=== PATIENT | female | born 1970 | race Caucasian/White ===

== ENCOUNTER 2019-04-15 16:48 | Observation (INO) | payer OTHER ==
[~2019-04-15] VITALS: Ht 162 cm; Wt 92.1 kg
[2019-04-15] MEDS ORDERED: NITROGLYCERIN 0.4 MG SL TABS BTL 25'S SL PRN ×2 (17:00→19:15)
[2019-04-15] MEDS ORDERED: ASPIRIN 81 MG CHEW (CHILDREN'S ASA) PO ONE (17:00)
--- NOTE | 2019-04-15 17:07 | ED Chest Pain ---
General Chief Complaint: Chest Pain Stated Complaint: CHEST PAIN Source: patient, RN/MD (Dr. goodman, urgent care) Exam Limitations: no limitations History of Present Illness Date Seen by Provider: Apr 15, 2019 Time Seen by Provider: 16:48 Initial Comments Patient reports the ER by private conveyance from urgent care with chief compla int she woke up this morning around 6 and was having some burning pain down the center of her chest substernal nonradiating. She's also having some numbness and weakness in her left upper extremity. She said she's had this intermittently for the past 3-4 weeks. She does not follow with a primary care doctor but does see Dr. goodman at urgent care for most of her needs. She is on blood pressure medicine and was told her cholesterol was high so she started exercising recently. She says whenever she exercised today it made her pain in her chest worse and she became short of breath. Recently she was being treated for bronchitis/pneumonia outpatient with antibiotics. She is off that now. She has not been on steroids. No history of diabetes, smoking or recreational drugs. She occasionally has alcohol. No significant familial history of coronary disease. She's not had any fever but she has had some sweats which she associates with her perimenopausal. Dr. goodman called report ahead stating that the initial EKG was negative. She takes omeprazole daily for acid reflux. She had mycoplasma pneumonia in January for the urgent care note. Pain never completely goes away but it's about a 1 out of 10 presently. She says it got worse she walked in to the ER. She uses albuterol and Symbicort for her asthma. Allergies and Home Medications Allergies Coded Allergies: No Known Drug Allergies (Unverified , 04/15/19) Patient Home Medication List Home Medication List Reviewed: Yes Review of Systems Review of Systems Constitutional: No chills, No diaphoresis EENTM: No Blurred Vision, No Double Vision Respiratory: Denies Cough, Denies Orthopnea Cardiovascular: See HPI, Chest Pain; Denies Edema, Denies Irregular Heart Rate, Denies Lightheadedness Gastrointestinal: Denies Abdomen Distended, Denies Abdominal Pain, Denies Const ipated, Denies Diarrhea Musculoskeletal: No back pain, No joint pain All Other Systems Reviewed Negative Unless Noted: Yes Past Hqeuhla-Okujao-Qdvltj Hx Patient Social History Alcohol Use: Denies Use Recreational Drug Use: No Smoking Status: Never a Smoker Recent Foreign Travel: No Contact w/Someone Who Travel: No Physical Exam Vital Signs Vital Signs - First Documented 04/15/19 16:55 Temp 36.1 Pulse 103 Resp 20 B/P (MAP) 201/103 (135) Pulse Ox 99 Capillary Refill : Height, Weight, BMI Height: '" Weight: lbs. oz. kg; BMI Method: General Appearance: WD/WN, Mild Distress HEENT: TMs Normal, Pharynx Normal, Moist Mucous Membranes Neck: Full Range of Motion, Normal Inspection Respiratory: Chest Non Tender, Lungs Clear, Normal Breath Sounds, No Accessory Muscle Use, No Respiratory Distress Cardiovascular: Regular Rate, Rhythm, No Edema, No Gallop, No Murmur, Normal Pe ripheral Pulses Gastrointestinal: Normal Bowel Sounds, Non Tender Extremity: Normal Capillary Refill, Normal Inspection, No Pedal Edema Neurologic/Psychiatric: Alert, Oriented x3 Skin: Normal Color, Warm/Dry Progress/Results/Core Measures Results/Orders Lab Results Laboratory Tests Test 04/15/19 16:50 04/15/19 18:27 Range/Units White Blood Count 9.1 4.3-11.0 10^3/uL Red Blood Count 4.83 4.35-5.85 10^6/uL Hemoglobin 14.2 11.5-16.0 G/DL Hematocrit 41 35-52 % Mean Corpuscular Volume 85 80-99 FL Mean Corpuscular Hemoglobin 29 25-34 PG Mean Corpuscular Hemoglobin Concent 35 32-36 G/DL Red Cell Distribution Width 13.7 10.0-14.5 % Platelet Count 287 130-400 10^3/uL Mean Platelet Volume 11.2 H 7.4-10.4 FL Neutrophils (%) (Auto) 65 42-75 % Lymphocytes (%) (Auto) 26 12-44 % Monocytes (%) (Auto) 8 0-12 % Eosinophils (%) (Auto) 1 0-10 % Basophils (%) (Auto) 0 0-10 % Neutrophils # (Auto) 5.9 1.8-7.8 X 10^3 Lymphocytes # (Auto) 2.3 1.0-4.0 X 10^3 Monocytes # (Auto) 0.8 0.0-1.0 X 10^3 Eosinophils # (Auto) 0.1 0.0-0.3 10^3/uL Basophils # (Auto) 0.0 0.0-0.1 10^3/uL Prothrombin Time 13.1 12.2-14.7 SEC INR Comment 1.0 0.8-1.4 Activated Partial Thromboplast Time 32 24-35 SEC D-Dimer < 0.27 0.00-0.49 UG/ML Sodium Level 138 135-145 MMOL/L Potassium Level 3.3 L 3.6-5.0 MMOL/L Chloride Level 102 98-107 MMOL/L Carbon Dioxide Level 24 21-32 MMOL/L Anion Gap 12 5-14 MMOL/L Blood Urea Nitrogen 9 7-18 MG/DL Creatinine 0.78 0.60-1.30 MG/DL Estimat Glomerular Filtration Rate > 60 BUN/Creatinine Ratio 12 Glucose Level 94 70-105 MG/DL Calcium Level 9.7 8.5-10.1 MG/DL Corrected Calcium 8.5-10.1 MG/DL Magnesium Level 2.0 1.6-2.4 MG/DL Total Bilirubin 0.4 0.1-1.0 MG/DL Aspartate Amino Transf (AST/SGOT) 15 5-34 U/L Alanine Aminotransferase (ALT/SGPT) 18 0-55 U/L Alkaline Phosphatase 74 40-136 U/L Myoglobin 35.3 10.0-92.0 NG/ML Troponin I < 0.028 <0.028 NG/ML Total Protein 8.0 6.4-8.2 GM/DL Albumin 4.6 H 3.2-4.5 GM/DL Lipase 27 8-78 U/L Urine Color YELLOW Urine Clarity CLEAR Urine pH 6.5 5-9 Urine Specific [place] <=1.005 1.016-1.022 Urine Protein NEGATIVE NEGATIVE Urine Glucose (UA) NEGATIVE NEGATIVE Urine Ketones NEGATIVE NEGATIVE Urine Nitrite NEGATIVE NEGATIVE Urine Bilirubin NEGATIVE NEGATIVE Urine Urobilinogen 0.2 < = 1.0 MG/DL Urine Leukocyte Esterase NEGATIVE NEGATIVE Urine RBC (Auto) NEGATIVE NEGATIVE Urine RBC NONE /HPF Urine WBC NONE /HPF Urine Squamous Epithelial Cells 2-5 /HPF Urine Crystals NONE /LPF Urine Bacteria TRACE /HPF Urine Casts NONE /LPF Urine Mucus NEGATIVE /LPF Urine Culture Indicated NO Urine Test NEGATIVE NEGATIVE My Orders Orders - TL ORTIZ Ekg Tracing (04/15/19 16:50) Continuous Ekg Monitoring (04/15/19 16:50) Cbc With Automated Diff (04/15/19 17:00) Magnesium (04/15/19 17:00) Chest 1 View, Ap/Pa Only (04/15/19 17:00) Comprehensive Metabolic Panel (04/15/19 17:00) Myoglobin Serum (04/15/19 17:00) Protime With Inr (04/15/19 17:00) Partial Thromboplastin Time (04/15/19 17:00) O2 (04/15/19 17:00) Lipid Panel (04/16/19 06:00) Ed Iv/Invasive Line Start (04/15/19 17:00) Lipase (04/15/19 17:00) Fibrin Degradation Products (04/15/19 17:00) Troponin I (04/15/19 17:00) Nitroglycerin 0.4 Mg Btl 25's (Nitrostat (04/15/19 17:00) Aspirin Chewable Tablet (Baby Aspirin Ch (04/15/19 17:00) Ua Culture If Indicated (04/15/19 18:26) Hcg,Qualitative Urine (04/15/19 18:26) Drug Screen Stat (Urine) (04/15/19 18:26) Medications Given in ED Current Medications Medications Dose Ordered Sig/Clare Route Start Time Stop Time Status Last Admin Dose Admin Aspirin 324 mg ONCE ONCE PO 04/15/19 17:00 04/15/19 17:03 DC 04/15/19 17:13 324 MG Nitroglycerin 0.4 mg UD PRN SL 04/15/19 17:00 04/15/19 17:14 0.4 MG Vital Signs/I&O 04/15/19 04/15/19 16:55 18:33 Temp 36.1 Pulse 103 73 Resp 20 18 B/P (MAP) 201/103 (135) 162/76 Pulse Ox 99 97 Progress Progress Note #1: Time: 17:08 Progress Note Patient has lots of confounding chest pain mimics such as GERD, recent pneumonia/bronchitis, asthma, etc. Plan to start off with aspirin and nitroglycerin. If this does not help then we'll try an antacid and GI cocktail. Initial EKG is unremarkable. She has risk factors of hypercholesterolemia, obesity and hypertension for coronary disease. With a negative troponin and she would have 4 points, heart scale based on her risk factors and age. Because of her tachycardia we'll get a d-dimer. Her recent illnesses had or laid up his back trying to exercise and she has exertional shortness of breath so a pulmonary embolism is possible. Well score 3 points: Moderate risk group: 16.2% chance of PE in an ED population. Her blood pressure is significantly elevated at 173/90. Progress Note #2: Time: 17:43 Progress Note Nursing reports that the patient's chest discomfort went away entirely with 1 dose of nitroglycerin and her blood pressure has improved significantly down to 149/85. She has no longer tachycardic. D-dimer is below the detectable rate; ruling out the likelihood of any pulmonary emboli. Initial ECG Impression Date: Apr 15, 2019 Initial ECG Impression Time: 16:08 Initial ECG Rate: 74 Initial ECG Rhythm: Normal Sinus Initial ECG Intervals: Normal Initial ECG Impression: Normal Initial ECG Comparisson: No Previous ECG Available Comment No ST elevation or depression. Normal sinus rhythm. EKG : EKG Time: 16:54 Rate: 98 Rhythm: Normal Sinus Intervals: Normal ECG Comparisson: Unchanged ECG Impression: Normal Comment Borderline left axis deviation, normal sinus rhythm. No clinically relevant ST elevation or depression. About one half block ST depression in the anterior lateral leads. Diagnostic Imaging Diagonstic Imaging: Xray Plain Films/CT/US/NM/MRI: chest (1v) Comments NAME: KEMAL MCBRIDE [facility] REC#: [id number] PT STATUS: REG ER : 1970 PHYSICIAN: TL ORTIZ MD ADMIT DATE: 04/15/19/ER Signed Date of Exam:04/15/19 CHEST 1 VIEW, AP/PA ONLY INDICATION: Chest pain Frontal chest obtained at 05:25 hours p.m. There is no prior study for comparison. Heart and mediastinal silhouette are normal in appearance. The lungs are clear. There is no pneumothorax or pleural fluid. IMPRESSION: Negative chest. Dictated by: Dictated on workstation # [id number] Dict: 04/15/19 1728 Trans: 04/15/19 173 [facility] [id number] Interpreted by: TARI MARQUEZ MD Electronically signed by: TARI MARQUEZ MD 04/15/19 1734 Reviewed: Reviewed by Me Departure Communication (Admissions) Time/Spoke to Admitting Phy: 18:40 Discussed the case with Dr. Connell and he agrees to observe the patient with cardiac consultation and trend troponins. Time/Spoke to Consulting Phy: 18:15 Discussed case EKG findings with Dr. Abraham and he agrees to consult on the patient. Impression Primary Impression: Chest pain on exertion Disposition: ADMITTED INPATIENT Condition: Stable Admissions Decision to Admit Reason: Admit from ER (General) Decision to Admit/Date: Apr 15, 2019 Time/Decision to Admit Time: 17:47 Departure-Patient Inst. Referrals: NO,LOCAL PHYSICIAN (PCP) Primary Care Physician TL ORTIZ Apr 15, 2019 17:07
[2019-04-15 17:21] LABS: BASOPHILS % (AUTO) 0 % (0-10); EOSINOPHILS # (AUTO) 0.1 10^3/uL (0.0-0.3); EOSINOPHILS % (AUTO) 1 % (0-10); HEMATOCRIT 41 % (35-52); HEMOGLOBIN 14.2 G/DL (11.5-16.0); LYMPHOCYTES # (AUTO) 2.3 X 10^3 (1.0-4.0); LYMPHOCYTES % (AUTO) 26 % (12-44); MEAN CORPUSCULAR HEMOGLOBIN 29 PG (25-34); MEAN CORPUSCULAR HGB CONC 35 G/DL (32-36); MEAN CORPUSCULAR VOLUME 85 FL (80-99); MEAN PLATELET VOLUME 11.2 FL (7.4-10.4); MONOCYTES # (AUTO) 0.8 X 10^3 (0.0-1.0); MONOCYTES % (AUTO) 8 % (0-12); NEUTROPHILS # (AUTO) 5.9 X 10^3 (1.8-7.8); NEUTROPHILS % (AUTO) 65 % (42-75); PLATELET COUNT 287 10^3/uL (130-400); RED CELL DISTRIBUTION WIDTH 13.7 % (10.0-14.5); WHITE BLOOD COUNT 9.1 10^3/uL (4.3-11.0)
[2019-04-15 17:33] LABS: PROTHROMBIN TIME PATIENT 13.1 SEC (12.2-14.7)
--- NOTE | 2019-04-15 17:36 | Diagnostic Imaging Report ---
INDICATION: Chest pain Frontal chest obtained at 05:25 hours p.m. There is no prior study for comparison. Heart and mediastinal silhouette are normal in appearance. The lungs are clear. There is no pneumothorax or pleural fluid. IMPRESSION: Negative chest. Dictated by: Dictated on workstation # [id number]
[2019-04-15 17:43] LABS: ALANINE AMINOTRANSFERASE 18 U/L (0-55); ALBUMIN 4.6 GM/DL (3.2-4.5); ALKALINE PHOSPHATASE 74 U/L (40-136); BILIRUBIN,TOTAL 0.4 MG/DL (0.1-1.0); BUN/CREATININE RATIO 12; CALCIUM 9.7 MG/DL (8.5-10.1); CARBON DIOXIDE 24 MMOL/L (21-32); CHLORIDE 102 MMOL/L (98-107); CREATININE SERUM 0.78 MG/DL (0.60-1.30); GFR ESTIMATED > 60; GLUCOSE 94 MG/DL (70-105); LIPASE 27 U/L (8-78); POTASSIUM 3.3 MMOL/L (3.6-5.0); SODIUM 138 MMOL/L (135-145)
--- NOTE | 2019-04-15 18:32 | NUR ---
REPORT FROM PABLO EVANS IN ED.
[2019-04-15 18:35] LABS: BILIRUBIN,URINE NEGATIVE (NEGATIVE); CLARITY,URINE CLEAR; COLOR,URINE YELLOW; GLUCOSE, URINE (UA) NEGATIVE (NEGATIVE); KETONES,URINE NEGATIVE (NEGATIVE); LEUKOCYTE ESTERASE ,URINE NEGATIVE (NEGATIVE); NITRITE,URINE NEGATIVE (NEGATIVE); PH,URINE 6.5 (5-9); PROTEIN,URINE NEGATIVE (NEGATIVE)
[2019-04-15 18:38] LABS: HCG,QUALITATIVE URINE NEGATIVE (NEGATIVE)
[2019-04-15 18:41] LABS: BACTERIA,URINE TRACE /HPF
[2019-04-15 18:46] LABS: AMPHETAMINE SCREEN, URINE NEGATIVE (NEGATIVE); BENZODIAZEPINES SCREEN URINE NEGATIVE (NEGATIVE); CANNABINOID SCREEN, URINE NEGATIVE (NEGATIVE); COCAINE SCREEN URINE NEGATIVE (NEGATIVE); METHAMPHETAMINE SCREEN URINE S NEGATIVE (NEGATIVE)
[2019-04-15 18:47] LABS: BARBITURATE SCREEN URINE NEGATIVE (NEGATIVE); METHADONE STAT NEGATIVE (NEGATIVE); OPIATE SCREEN URINE NEGATIVE (NEGATIVE); OXYCODONE STAT NEGATIVE (NEGATIVE); PROPOXYPHENE STAT NEGATIVE (NEGATIVE); TRICYCLIC ANTIDEPRESSANTS SCRE NEGATIVE (NEGATIVE)
[2019-04-15] MEDS ORDERED: ONDANSETRON 4 MG/2 ML (SDV) Z0FRAN IV PRN ×2 (19:15→19:30)
[2019-04-15] MEDS ORDERED: morphine INJ 4 MG/ML 1 ML (VIAL/SYRINGE) IV PRN (19:15)
[2019-04-15 19:17] VITALS: BP 152/88
[2019-04-15 19:19] VITALS: BP 152/88
[2019-04-15] MEDS ORDERED: ANTACID SUSP 30 ML UDC (MYLANTA) PO PRN (19:30)
[2019-04-15] MEDS ORDERED: CATHETER FLUSH 10 ML SYR IV PRN (19:30)
[2019-04-15] MEDS ORDERED: ACETAMINOPHEN 500 MG TAB (TYLENOL) PO PRN (19:30)
[2019-04-15] MEDS ORDERED: PANTOPRAZOLE 40 MG (PROTONIX) TAB PO SCH (21:00)
[2019-04-15] MEDS: CATHETER FLUSH 10 ML SYR IV SCH (23:44)
[2019-04-16] VITALS: BP 134/82
[2019-04-16 05:19] VITALS: BP 125/82
[2019-04-16 06:26] LABS: BASOPHILS % (AUTO) 0 % (0-10); EOSINOPHILS # (AUTO) 0.1 10^3/uL (0.0-0.3); EOSINOPHILS % (AUTO) 1 % (0-10); HEMATOCRIT 38 % (35-52); HEMOGLOBIN 12.8 G/DL (11.5-16.0); LYMPHOCYTES # (AUTO) 1.8 X 10^3 (1.0-4.0); LYMPHOCYTES % (AUTO) 29 % (12-44); MEAN CORPUSCULAR HEMOGLOBIN 29 PG (25-34); MEAN CORPUSCULAR HGB CONC 33 G/DL (32-36); MEAN CORPUSCULAR VOLUME 87 FL (80-99); MEAN PLATELET VOLUME 10.9 FL (7.4-10.4); MONOCYTES # (AUTO) 0.6 X 10^3 (0.0-1.0); MONOCYTES % (AUTO) 10 % (0-12); NEUTROPHILS # (AUTO) 3.7 X 10^3 (1.8-7.8); NEUTROPHILS % (AUTO) 60 % (42-75); PLATELET COUNT 222 10^3/uL (130-400); RED CELL DISTRIBUTION WIDTH 13.6 % (10.0-14.5); WHITE BLOOD COUNT 6.1 10^3/uL (4.3-11.0)
[2019-04-16] MEDS: CATHETER FLUSH 10 ML SYR IV SCH ×3 (06:36→22:41)
[2019-04-16 06:50] LABS: ALANINE AMINOTRANSFERASE 14 U/L (0-55); ALBUMIN 3.8 GM/DL (3.2-4.5); ALKALINE PHOSPHATASE 71 U/L (40-136); BILIRUBIN,TOTAL 0.4 MG/DL (0.1-1.0); BUN/CREATININE RATIO 11; CALCIUM 9.2 MG/DL (8.5-10.1); CARBON DIOXIDE 25 MMOL/L (21-32); CHLORIDE 105 MMOL/L (98-107); CHOLESTEROL 246 MG/DL (< 200); CREATININE SERUM 0.81 MG/DL (0.60-1.30); GFR ESTIMATED > 60; GLUCOSE 94 MG/DL (70-105); HDL CHOLESTEROL 68 MG/DL (40-60); POTASSIUM 3.8 MMOL/L (3.6-5.0); SODIUM 140 MMOL/L (135-145); TOTAL PROTEIN 6.6 GM/DL (6.4-8.2); TRIGLYCERIDES 107 MG/DL (<150); VLDL CHOLESTEROL 21 MG/DL (5-40)
[2019-04-16 08:00] VITALS: BP 160/85
--- NOTE | 2019-04-16 08:05 | NUR ---
notified cardiac MD regarding patients change in troponin level as well as elevated BP this AM, no orders at this time
[2019-04-16] MEDS: ASPIRIN E.C. 81 MG (ECOTRIN) TAB PO SCH (08:44)
--- NOTE | 2019-04-16 09:34 | Consultation-Cardiology ---
HPI-Cardiology Cardiology Consultation Date of Consultation 04/16/19 Date of Admission Time Seen by Provider: 09:31 Indication: chest pain HPI 48-year-old lady with no significant past medical history, has been having occasional episodes of chest pain, reported an episode of chest pain about 3 months ago as dull in nature on the left side of her chest radiating to the left shoulder and left arm during a skiing trip. Improved after returning home, continue to feel better, diagnosed with pneumonia earlier this year then bronchitis, started to have recurrent episodes of chest pain described it as dull in nature in the retrosternal area usually with exertion relieved by rest, had worsening episode of chest pain yesterday, improved after sublingual nitroglycerin Home Medications & Allergies Allergies: Coded Allergies: No Known Drug Allergies (Unverified , 04/15/19) Home Medication List Reviewed: Yes KHC-Mztxro-Tpcmeu Hx Patient Social History Marital Status: Employed/Student: employed Alcohol Use: Denies Use Recreational Drug Use: No Smoking Status: Never a Smoker Recent Foreign Travel: No Recent Infectious Disease Expo: No Recent Hopitalizations: No Immunizations Up To Date Date of Pneumonia Vaccine: Apr 15, 2018 Date of Influenza Vaccine: Dec 13, 2018 Past Medical History Discussed below Family Medical History Family Medical Hx Noncontributory Review of Systems-General Review of Systems Constitutional: see HPI; No chills, No diaphoresis EENTM: see HPI, no symptoms reported Respiratory: see HPI; No cough; dyspnea on exertion; No hemoptysis, No ortho pnea, No phlegm, No short of breath, No stridor, No wheezing, No other Cardiovascular: see HPI, chest pain; No edema, No Hx of Intervention, No palpitations, No syncope, No vascular heart diseas, No other Gastrointestinal: no symptoms reported, see HPI Genitourinary: no symptoms reported, see HPI Musculoskeletal: see HPI; No back pain, No joint pain Skin: no symptoms reported, see HPI Psychiatric/Neurological: No Symptoms Reported, See HPI All Other Systems Reviewed Negative Unless Noted: Yes Reviewed Test Results Reviewed Test Results Lab Laboratory Tests Test 04/15/19 16:50 04/15/19 18:27 04/15/19 23:10 04/16/19 06:06 Range/Units White Blood Count 9.1 6.1 4.3-11.0 10^3/uL Red Blood Count 4.83 4.43 4.35-5.85 10^6/uL Hemoglobin 14.2 12.8 11.5-16.0 G/DL Hematocrit 41 38 35-52 % Mean Corpuscular Volume 85 87 80-99 FL Mean Corpuscular Hemoglobin 29 29 25-34 PG Mean Corpuscular Hemoglobin Concent 35 33 32-36 G/DL Red Cell Distribution Width 13.7 13.6 10.0-14.5 % Platelet Count 287 222 130-400 10^3/uL Mean Platelet Volume 11.2 H 10.9 H 7.4-10.4 FL Neutrophils (%) (Auto) 65 60 42-75 % Lymphocytes (%) (Auto) 26 29 12-44 % Monocytes (%) (Auto) 8 10 0-12 % Eosinophils (%) (Auto) 1 1 0-10 % Basophils (%) (Auto) 0 0 0-10 % Neutrophils # (Auto) 5.9 3.7 1.8-7.8 X 10^3 Lymphocytes # (Auto) 2.3 1.8 1.0-4.0 X 10^3 Monocytes # (Auto) 0.8 0.6 0.0-1.0 X 10^3 Eosinophils # (Auto) 0.1 0.1 0.0-0.3 10^3/uL Basophils # (Auto) 0.0 0.0 0.0-0.1 10^3/uL Prothrombin Time 13.1 12.2-14.7 SEC INR Comment 1.0 0.8-1.4 Activated Partial Thromboplast Time 32 24-35 SEC D-Dimer < 0.27 0.00-0.49 UG/ML Sodium Level 138 140 135-145 MMOL/L Potassium Level 3.3 L 3.8 3.6-5.0 MMOL/L Chloride Level 102 105 98-107 MMOL/L Carbon Dioxide Level 24 25 21-32 MMOL/L Anion Gap 12 10 5-14 MMOL/L Blood Urea Nitrogen 9 9 7-18 MG/DL Creatinine 0.78 0.81 0.60-1.30 MG/DL Estimat Glomerular Filtration Rate > 60 > 60 BUN/Creatinine Ratio 12 11 Glucose Level 94 94 70-105 MG/DL Calcium Level 9.7 9.2 8.5-10.1 MG/DL Corrected Calcium 9.4 8.5-10.1 MG/DL Magnesium Level 2.0 1.6-2.4 MG/DL Total Bilirubin 0.4 0.4 0.1-1.0 MG/DL Aspartate Amino Transf (AST/SGOT) 15 13 5-34 U/L Alanine Aminotransferase (ALT/SGPT) 18 14 0-55 U/L Alkaline Phosphatase 74 71 40-136 U/L Myoglobin 35.3 10.0-92.0 NG/ML Troponin I < 0.028 < 0.028 0.039 H <0.028 NG/ML Total Protein 8.0 6.6 6.4-8.2 GM/DL Albumin 4.6 H 3.8 3.2-4.5 GM/DL Lipase 27 8-78 U/L Urine Color YELLOW Urine Clarity CLEAR Urine pH 6.5 5-9 Urine Specific [place] <=1.005 1.016-1.022 Urine Protein NEGATIVE NEGATIVE Urine Glucose (UA) NEGATIVE NEGATIVE Urine Ketones NEGATIVE NEGATIVE Urine Nitrite NEGATIVE NEGATIVE Urine Bilirubin NEGATIVE NEGATIVE Urine Urobilinogen 0.2 < = 1.0 MG/DL Urine Leukocyte Esterase NEGATIVE NEGATIVE Urine RBC (Auto) NEGATIVE NEGATIVE Urine RBC NONE /HPF Urine WBC NONE /HPF Urine Squamous Epithelial Cells 2-5 /HPF Urine Crystals NONE /LPF Urine Bacteria TRACE /HPF Urine Casts NONE /LPF Urine Mucus NEGATIVE /LPF Urine Culture Indicated NO Urine Test NEGATIVE NEGATIVE Urine Opiates Screen NEGATIVE NEGATIVE Urine Oxycodone Screen NEGATIVE NEGATIVE Urine Methadone Screen NEGATIVE NEGATIVE Urine Propoxyphene Screen NEGATIVE NEGATIVE Urine Barbiturates Screen NEGATIVE NEGATIVE Ur Tricyclic Antidepressants Screen NEGATIVE NEGATIVE Urine Phencyclidine Screen NEGATIVE NEGATIVE Urine Amphetamines Screen NEGATIVE NEGATIVE Urine Methamphetamines Screen NEGATIVE NEGATIVE Urine Benzodiazepines Screen NEGATIVE NEGATIVE Urine Cocaine Screen NEGATIVE NEGATIVE Urine Cannabinoids Screen NEGATIVE NEGATIVE Triglycerides Level 107 <150 MG/DL Cholesterol Level 246 H < 200 MG/DL LDL Cholesterol Direct 180 H 1-129 MG/DL VLDL Cholesterol 21 5-40 MG/DL HDL Cholesterol 68 H 40-60 MG/DL Physical Exam Physical Exam Vital Signs Vital Signs - First Documented 04/15/19 04/15/19 16:55 19:17 Temp 36.1 Pulse 103 Resp 20 B/P (MAP) 201/103 (135) Pulse Ox 99 O2 Delivery Room Air Capillary Refill : Greater Than 3 SecondsLess Than 3 Seconds Height, Weight, BMI Height: '" Weight: lbs. oz. kg; 35.09 BMI Method: General Appearance: WD/WN, Mild Distress Eyes: Bilateral Eye Normal Inspection, Bilateral Eye PERRL, Bilateral Eye EOMI HEENT: TMs Normal, Pharynx Normal, Moist Mucous Membranes Neck: Full Range of Motion, Normal Inspection Respiratory: Chest Non Tender, Lungs Clear, Normal Breath Sounds, No Accessory Muscle Use, No Respiratory Distress Cardiovascular: Regular Rate, Rhythm, No Edema, No Gallop, No Murmur, Normal Peripheral Pulses Gastrointestinal: Normal Bowel Sounds, Non Tender Back: Normal Inspection, No CVA Tenderness, No Vertebral Tenderness Extremity: Normal Capillary Refill, Normal Inspection, No Pedal Edema Neurologic/Psychiatric: Alert, Oriented x3 Skin: Normal Color, Warm/Dry Lymphatic: No Adenopathy A/P-Cardiology Admission Diagnosis Chest pain Shortness of breath Hyperlipidemia Assessment/Plan Chest pain resembling angina, accelerating angina with slight elevation in troponin responsive to sublingual nitroglycerin, discussed the management plan, I am planning to proceed with cardiac catheterization possible PTCA Shortness of breath, recent pneumonia, chest x-ray is normal. Continue to monitor Hyperlipidemia, LDL 180, planning to start statin Clinical Quality Measures AMI/AHF: ASA po Prior to arrival: No DVT/VTE Risk/Contraindication: Risk Factor Score Per Nursin RFS Level Per Nursing on Admit: 1=Low/No VTE PPX KIARRA LAZAR MD Apr 16, 2019 9:34 am
[2019-04-16] MEDS ORDERED: BUDE10.2 PO (10:12)
[2019-04-16] MEDS ORDERED: [UNRECOGNIZED DRUG - CODE] PO (10:12)
[2019-04-16] MEDS ORDERED: LISI1TAB25 PO (10:12)
[2019-04-16] MEDS ORDERED: OMEP-280 PO (10:12)
--- NOTE | 2019-04-16 10:13 | NUR ---
SPOKE WITH THE PT WELL GOING THRU THE EXT MED HISTORY TO COMPLETE THE MED REC. OTC MEDS: OMEPRAZOLE HAIR,NAIL AND SKIN VITAMIN
[2019-04-16] MEDS ORDERED: BISACODYL 10 MG SUPP (DULCOLAX) PR PRN (10:30)
[2019-04-16] MEDS ORDERED: PANTOPRAZOLE 40 MG (PROTONIX) TAB PO ONE (10:30)
[2019-04-16] MEDS ORDERED: ONDANSETRON 4 MG (ZOFRAN) ORAL DISSOLVE TAB PO PRN (10:30)
[2019-04-16] MEDS ORDERED: ENOXAPARIN 40 MG/0.4 ML (LOVENOX) SYR SC SCH (10:30)
[2019-04-16] MEDS ORDERED: polyethylene glycoL POWDER 17 GM (MIRALAX) PACK PO PRN (10:30)
[2019-04-16] MEDS ORDERED: MELATONIN 3 MG TABLET PO PRN (10:30)
[2019-04-16] MEDS ORDERED: lisINopril 40 MG (PRINIVIL) TABLET PO ONE (10:30)
--- NOTE | 2019-04-16 10:41 | History & Physical-Hospitalist ---
History of Present Illness HPI/Chief Complaint Marie Fuller is a 48-year-old female with past medical history of hypertension, hyperlipidemia, GERD, who presented with chest pain. She reports that she has been having occasional chest pain recently. She reports that it is worse with physical activity. She describes it as being in the middle of her chest and radiating to her shoulder blades. She denies any radiation to her neck, jaw, or arms. She says that she did have an episode where her left arm felt numb when she was on vacation but she had thought it was due to the altitude at the time. She denies any associated diaphoresis or nausea. She denies any shortness of breath. She says this time that her chest pain is completely resolved. She denies any family history of myocardial infarction. She denies tobacco use. She occasionally drinks alcohol. She denies any illicit drug use. Source: patient Exam Limitations: no limitations Date Seen 04/16/19 Time Seen by a Provider: 09:20 Attending Physician Harini Fountain MD PCP No,Local Physician Referring Physician Date of Admission Apr 15, 2019 at 18:20 Home Medications & Allergies Home Medications Reviewed patient Home Medication Reconciliation performed by pharmacy medication reconciliations special systems technician and/or nursing. Patients Allergies have been reviewed. Allergies Allergies Coded Allergies No Known Drug Allergies (Unverified04/15/19) Past Caxmqrg-Nfhhog-Bcfdac Hx Past Med/Social Hx: Reviewed and Corrections made Patient Social History Marrital Status: Employed/Student: employed Alcohol Use: Occasionally Uses (When bowling) Recreational Drug Use: No Smoking Status: Never a Smoker Recent Foreign Travel: No Contact w/other who traveled: No Recent Hopitalizations: No Recent Infectious Disease Expo: No Immunizations Up To Date Date of Pneumonia Vaccine: Apr 15, 2018 Date of Influenza Vaccine: Dec 13, 2018 Past Medical History Surgeries: Adenoidectomy, Appendectomy, Orthopedic, Tonsillectomy Cardiac: Hypertension Menopausal Gastrointestinal: Gastroesophageal Reflux Review of Systems Constitutional: no symptoms reported EENTM: no symptoms reported Respiratory: no symptoms reported Cardiovascular: chest pain, palpitations Gastrointestinal: no symptoms reported Genitourinary: no symptoms reported Musculoskeletal: no symptoms reported Skin: no symptoms reported Psychiatric/Neurological: No Symptoms Reported Physical Exam Physical Exam Vital Signs Vital Signs - First Documented 2/17/20 2/17/20 16:55 19:17 Temp 36.1 Pulse 103 Resp 20 B/P (MAP) 201/103 (135) Pulse Ox 99 O2 Delivery Room Air Capillary Refill : Greater Than 3 SecondsLess Than 3 Seconds Height, Weight, BMI Height: '" Weight: lbs. oz. kg; 35.09 BMI Method: General Appearance: No Apparent Distress, WD/WN HEENT: PERRL/EOMI, Pharynx Normal Neck: Normal Inspection, Supple Respiratory: Lungs Clear, Normal Breath Sounds, No Respiratory Distress Cardiovascular: Regular Rate, Rhythm, No Edema, No Murmur Gastrointestinal: Normal Bowel Sounds, Non Tender, Soft Extremity: Normal Inspection, Non Tender, No Pedal Edema Neurologic/Psychiatric: Alert, Oriented x3, No Motor/Sensory Deficits, Normal Mood/Affect Skin: Normal Color, Warm/Dry Results Results/Procedures Labs Laboratory Tests 04/15/19 16:50 04/16/19 06:06 Patient resulted labs reviewed. Imaging: Reviewed Imaging Report Assessment/Plan Admission Diagnosis Chest pain Admission Status: Observation Assessment and Plan Chest pain Elevated troponin Hyperlipidemia Obesity Initial troponin negative, trended up to 0.03 EKG without acute STT wave changes Cardiology consulted, appreciate assistance Heart score 4, moderate LDL and total cholesterol elevated Begin Lipitor Received aspirin in the emergency room Continue aspirin 81 mg daily Hypertension GERD Continue home meds DVT prophylaxis: Lovenox Diagnosis/Problems Diagnosis/Problems (1) Chest pain Status: Acute (2) Elevated troponin Status: Acute (3) Hyperlipidemia Status: Chronic (4) Obesity Status: Chronic Qualifiers: Obesity type: due to excess calories Serious obesity comorbidity presence: with serious comorbidity Body mass index: BMI 35.0-35.9 (5) Essential hypertension Status: Chronic (6) GERD (gastroesophageal reflux disease) Status: Chronic Qualifiers: Esophagitis presence: esophagitis presence not specified Qualified Codes: K21.9 - Gastro-esophageal reflux disease without esophagitis Clinical Quality Measures AMI/AHF: ASA po Prior to arrival: No DVT/VTE Risk/Contraindication: Risk Factor Score Per Nursin RFS Level Per Nursing on Admit: 1=Low/No VTE PPX HARINI FOUNTAIN MD Apr 16, 2019 10:41
[2019-04-16] MEDS ORDERED: ACETAMINOPHEN 325 MG TABLET PO PRN (10:45)
[2019-04-16 12:43] VITALS: BP 143/89
[2019-04-16 16:00] VITALS: BP 137/87
[2019-04-16 20:00] VITALS: BP 137/88
[2019-04-16] MEDS: PANTOPRAZOLE 40 MG (PROTONIX) TAB PO SCH (22:41)
[2019-04-17] VITALS (12 sets, daily range): BP systolic 129–157; BP diastolic 77–98
[2019-04-17] MEDS: CATHETER FLUSH 10 ML SYR IV SCH ×3 (05:17→20:49)
[2019-04-17] MEDS ORDERED: LIDOCAINE 1% INJ 20 ML 20 ML VIAL ONE (06:41)
[2019-04-17] MEDS ORDERED: HEParin (CATH LAB) 2,000 ML IV ONE (06:42)
[2019-04-17] MEDS ORDERED: fentaNYL INJECTION 100 MCG/2 ML AMP ONE (07:06)
[2019-04-17] MEDS ORDERED: MIDAZOLAM 5 MG/5 ML (VERSED) VIAL ONE (07:06)
[2019-04-17] MEDS ORDERED: NS IV 1000 ML 1,000 ML ONE (07:18)
--- NOTE | 2019-04-17 07:18 | NUR ---
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
[2019-04-17] MEDS ORDERED: meTOprolol 5 MG/5 ML (LOPRESSOR) VIAL ONE (07:42)
[2019-04-17] MEDS ORDERED: HEParin 1000 UNIT/ML (10ML VIAL) FOR BOLUS ONE (07:47)
[2019-04-17] MEDS ORDERED: NITRO DRIP 25000 MCG/D5W 250 ML IV ONE (07:47)
[2019-04-17] MEDS ORDERED: NS IV 1000 ML 1,000 ML IV SCH (08:11)
[2019-04-17] MEDS ORDERED: CLOPIDOGREL 300 MG (PLAVIX) TABLET PO ONE (08:12)
[2019-04-17] MEDS ORDERED: ASPIRIN 325 MG (5 GR) TABLET ONE (08:12)
[2019-04-17] MEDS ORDERED: PATIENT MAY USE OWN MEDS, ALL PO SCH (08:15)
--- NOTE | 2019-04-17 08:20 | Cardiac Cath Report ---
Cardiac Cath Report Physician (s)/Gas Meter Checker (s) Physician KIARRA LAZAR MD Pre-Procedure Diagnosis Pre-Procedure Diagnosis: Unstable angina Post-Procedure Note Procedure Start Date: Apr 17, 2019 Name of Procedure: Left heart catheterization Stent to the right coronary artery Findings/Procedure Note PROCEDURE NOTE: 48-year-old lady admitted with unstable angina, strong family history of heart disease, multiple risk factors, scheduled for cardiac catheterization possible PTCA. After explaining the procedure to the patient, all pros and cons were explained, all questions were answered. The patient signed the consent and then she was placed on the cardiac catheterization laboratory. Groin was prepped SL fashion local anesthesia was used. Sheath placed in the right femoral artery. Robert right and left catheter were used to access the coronary system. Right catheter was advanced to the left ventricular cavity Left ventriculogram was not done, pressure was measured 5000 units of heparin were given, F are denied was used with sidehole, BMW wire was advanced through the right cornea artery patient has to lesion one area at the distal portion with 60-70 percent stenosis, proximally there is subtotal occlusion, predilatation with 2.5 balloon was done then 2 overlapping Angela stent 2.5 x 18 mm and 2.5 x 23 mm deployed with excellent results no residual stenosis, there is 30-40 percent stenosis at the distal right coronary artery just above the bifurcation was treated medically. At the end of the procedure the sheath was removed. Closure device was used FINDINGS: Hemodynamics LV 155/9, end-diastolic pressure of 9 Aorta 159/79 mean of 104 ANATOMY: Left Main is free of obstructive disease Left Anterior Descending has mild disease proximally Left Circumflex has mild disease nonobstructive disease Right Coronory Artery has 2 segment of severe stenosis approximately 95 percent mid 60-70 percent, successful deployment of 2 overlapping drug-eluting stent Angela 2.5 x 18 and 2.5 x 23 mm expanded to 2.6 mm with excellent results LV Gram was not done, pressure was measured CONCLUSION: 1. Severe stenosis at the proximal and mid right coronary artery successful deployment of 2 overlapping stents Angela 2.5 x 18 and 2.5 x 23 mm expanded to 2.7 mm with excellent results, at the distal right coronary artery there is 30- 40 percent stenosis just above the bifurcation nonobstructive disease 2. Left anterior descending artery has 40 percent stenosis at the midportion nonobstructive disease 3. Otherwise mild coronary artery disease 4. Normal left ventricular end-diastolic pressure DISCUSSION AND RECOMMENDATION: Patient was loaded with aspirin and Plavix. Continue to maximize medical therapy Anesthesia Type: Conscious Sedation Estimated blood loss (mL): 25 ml Contrast Amount: 100 ml Total Radiation Dose: 662 mGy Post-Procedure Diagnosis Post-operative diagnosis: Unstable angina Coronary artery disease Hyperlipidemia Family history of atherosclerosis KIARRA LAZAR MD Apr 17, 2019 08:20
--- NOTE | 2019-04-17 08:22 | Cardiac Procedure Note-CS/ASA ---
Pre-Procedure Note Pre-Op Procedure Note H&P Reviewed The H&P was reviewed, patient examined and no changes noted. Date H&P Reviewed: Apr 17, 2019 Time H&P Reviewed: 07:00 Conscious Sedation Pre-Proced Time 07:00 ASA Score 3 For ASA 3 and 4: Consider anesthesia and medical clearance. Also, for patients with a history of failed moderate sedation consider anesthesia. Airway Lungs Heart ASA score ASA 1: a normal healthy patient ASA 2: a patient with a mild systemic disease (mid diabetes, controlled hypertension, obesity x ASA 3: a patient with a severe systemic disease that limits activity (angina, COPD, prior Myocardial infarction) ASA 4: a patient with an incapacitating disease that is a constant threat to life (CHF, renal failure) ASA 5: a moribund patient not expected to survive 24 hrs. (ruptured aneurysm) ASA 6: a declared brain- patient whose organs are being harvested. For emergent operations, add the letter E after the classification Mallampati Classification Grade 3 Sedation Plan Analgesia, Amnesia, Plan communicated to team members, Discussed options with patient/fam, Discussed risks with patient/fam The patient is an appropriate candidate to undergo the planned procedure, sedation, and anesthesia. The patient immediately re-assessed prior to indication. KIARRA LAZAR MD Apr 17, 2019 08:22
--- NOTE | 2019-04-17 08:24 | Cardiology Progress Note ---
Subjective Date Seen by Provider: Apr 17, 2019 Time Seen by Provider: 08:22 Subjective/Events-last exam Patient is laying down comfortably, no new complaint Review of Systems General: No Chills, No Night Sweats, No Fatigue, No Malaise, No Appetite, No Other HEENT: No Head Aches, No Visual Changes, No Eye Pain, No Ear Pain, No Dysphasia, No Sinus Congestion, No Post Nasal Drip, No Sore Throat, No Other Pulmonary: No Dyspnea, No Cough, No Pleuritic Chest Pain, No Other Cardiovascular: No: Chest Pain, Palpitations, Orthopnea, Paroxysmal Noc. Dyspnea, Edema, Lt Headedness, Other Objective-Cardiology Exam Last Set of Vital Signs Vital Signs 04/17/19 05:15 Temp 36.7 Pulse 64 Resp 20 B/P (MAP) 148/82 (104) Pulse Ox 98 O2 Delivery Room Air Capillary Refill : Less Than 3 SecondsLess Than 3 Seconds I&O Intake and Output 04/17/19 00:00 Intake Total 1760 ml Balance 1760 ml Intake Oral 1760 ml # Voids 9 # Bowel Movements 1 General: Alert, Oriented X3, Cooperative HEENT: Atraumatic, PERRLA Neck: Supple, No JVD, No Thyromegaly Lungs: Clear to Auscultation, Normal Air Movement Heart: Regular Rate, Normal S1, Normal S2, No Murmurs Abdomen: Normal Bowel Sounds, Soft, No Tenderness, No Hepatosplenomegaly, No Masses Extremities: No Clubbing, No Cyanosis, No Edema, Normal Pulses, No Tenderness/Swelling Skin: No Rashes, No Breakdown, No Significant Lesion Neuro: Normal Gait, Normal Speech, Strength at 5/5 X4 Ext, Normal Tone, Sensation Intact Psych/Mental Status: Mental Status NL, Mood NL A/P-Cardiology Admission Diagnosis Chest pain Shortness of breath Hyperlipidemia Assessment/Plan Chest pain, unstable angina, cardiac catheterization was done with stenting to the right coronary artery. Coronary artery disease, severe stenosis at 2 segments of the right coronary artery successful deployment of 2 overlapping stents Angela 2.5 x 18 and 2.5 x 23 mm expanded to 2.7 mm with excellent results, mild disease at the distal right coronary artery and mid LAD otherwise nonobstructive disease Shortness of breath, recent pneumonia, chest x-ray is normal. Continue to monitor Hyperlipidemia, LDL 180, started on Lipitor 80 mg, monitor Family history of atherosclerosis Clinical Quality Measures AMI/AHF: ASA po Prior to arrival: No DVT/VTE Risk/Contraindication: Risk Factor Score Per Nursin RFS Level Per Nursing on Admit: 1=Low/No VTE PPX KIARRA LAZAR MD Apr 17, 2019 08:24
--- NOTE | 2019-04-17 08:59 | NUR ---
THIS PATIENT WILL TRANSFER TO ICU AFTER STEAM TABLE ASSOCIATE. THIS NURSE HAD NO OPPORTUNITY TO ASSESS THIS PATIENT BEFORE SHE LEFT THE FLOOR.
[2019-04-17] MEDS ORDERED: lisINopril 40 MG (PRINIVIL) TABLET PO SCH (09:00)
[2019-04-17] MEDS ORDERED: CLOPIDOGREL 75 MG (PLAVIX) TABLET PO SCH (09:00)
[2019-04-17] MEDS ORDERED: ASPIRIN E.C. 81 MG (ECOTRIN) TAB PO SCH (09:00)
[2019-04-17] MEDS: ASPIRIN E.C. 81 MG (ECOTRIN) TAB PO SCH (10:13)
[2019-04-17] MEDS: PANTOPRAZOLE 40 MG (PROTONIX) TAB PO SCH ×2 (10:14→20:49)
--- NOTE | 2019-04-17 12:58 | Progress Note - Hospitalist ---
Subjective HPI/CC On Admission Date Seen by Provider: Apr 17, 2019 Time Seen by Provider: 12:30 Marie Fuller is a 48-year-old female with past medical history of hypertension, hyperlipidemia, GERD, who presented with chest pain. She reports that she has been having occasional chest pain recently. She reports that it is worse with physical activity. She describes it as being in the middle of her chest and radiating to her shoulder blades. She denies any radiation to her neck, jaw, or arms. She says that she did have an episode where her left arm felt numb when s he was on vacation but she had thought it was due to the altitude at the time. She denies any associated diaphoresis or nausea. She denies any shortness of breath. She says this time that her chest pain is completely resolved. She denies any family history of myocardial infarction. She denies tobacco use. She occasionally drinks alcohol. She denies any illicit drug use. Subjective/Events-last exam She is doing well today. She denies any chest pain or shortness of breath. She denies any nausea or vomiting. She denies any abdominal pain. She denies any fevers or chills. Objective Exam Vital Signs Vital Signs Date Time Temp Pulse Resp B/P (MAP) Pulse Ox O2 Delivery O2 Flow Rate FiO2 04/17/19 08:45 36.1 76 25 143/98 (113) 96 Room Air Capillary Refill : Less Than 3 SecondsLess Than 3 Seconds General Appearance: No Apparent Distress, WD/WN Respiratory: Lungs Clear, Normal Breath Sounds, No Respiratory Distress Cardiovascular: Regular Rate, Rhythm, No Edema, No Murmur Gastrointestinal: Normal Bowel Sounds, Non Tender, Soft Extremity: Normal Inspection, Non Tender, No Pedal Edema Neurologic/Psychiatric: Alert, Oriented x3, No Motor/Sensory Deficits, Normal Mood/Affect Skin: Normal Color, Warm/Dry Results/Procedures Lab Patient resulted labs reviewed. Imaging: Reviewed Imaging Report Assessment/Plan Assessment and Plan Assess & Plan/Chief Complaint Chest pain Elevated troponin Hyperlipidemia Obesity Cardiology consulted, appreciate assistance Scheduled for left heart catheterization today Continue aspirin and Plavix Continue Lipitor Hypertension GERD Continue home meds DVT prophylaxis: Lovenox Diagnosis/Problems Diagnosis/Problems (1) Chest pain Status: Acute (2) Elevated troponin Status: Acute (3) Hyperlipidemia Status: Chronic (4) Obesity Status: Chronic Qualifiers: Obesity type: due to excess calories Serious obesity comorbidity presence: with serious comorbidity Body mass index: BMI 35.0-35.9 (5) Essential hypertension Status: Chronic (6) GERD (gastroesophageal reflux disease) Status: Chronic Qualifiers: Esophagitis presence: esophagitis presence not specified Qualified Codes: K21.9 - Gastro-esophageal reflux disease without esophagitis Clinical Quality Measures AMI/AHF: ASA po Prior to arrival: No DVT/VTE Risk/Contraindication: Risk Factor Score Per Nursin RFS Level Per Nursing on Admit: 1=Low/No VTE PPX PETRA FOUNTAIN MD Apr 17, 2019 12:58
[2019-04-18 00:16] VITALS: BP 119/78
[2019-04-18 04:00] VITALS: BP 137/85
[2019-04-18 04:14] LABS: HEMOGLOBIN 11.7 G/DL (11.5-16.0); MEAN PLATELET VOLUME 10.7 FL (7.4-10.4); RED CELL DISTRIBUTION WIDTH 13.5 % (10.0-14.5)
[2019-04-18 04:50] LABS: BUN/CREATININE RATIO 13; CALCIUM 8.5 MG/DL (8.5-10.1); CARBON DIOXIDE 20 MMOL/L (21-32); CHLORIDE 107 MMOL/L (98-107); CREATININE SERUM 0.76 MG/DL (0.60-1.30); GFR ESTIMATED > 60; GLUCOSE 91 MG/DL (70-105); POTASSIUM 3.9 MMOL/L (3.6-5.0); SODIUM 137 MMOL/L (135-145)
[2019-04-18] MEDS: CATHETER FLUSH 10 ML SYR IV SCH (05:28)
--- NOTE | 2019-04-18 07:42 | Cardiology Progress Note ---
Subjective Date Seen by Provider: Apr 18, 2019 Time Seen by Provider: 07:41 Subjective/Events-last exam Patient is laying down in bed, feeling well, groin is healing well. No chest pain was noted Review of Systems General: No Chills, No Night Sweats, No Fatigue, No Malaise, No Appetite, No Other HEENT: No Head Aches, No Visual Changes, No Eye Pain, No Ear Pain, No Dysphasia, No Sinus Congestion, No Post Nasal Drip, No Sore Throat, No Other Pulmonary: No Dyspnea, No Cough, No Pleuritic Chest Pain, No Other Cardiovascular: No: Chest Pain, Palpitations, Orthopnea, Paroxysmal Noc. Dyspnea, Edema, Lt Headedness, Other Objective-Cardiology Exam Last Set of Vital Signs Vital Signs 04/18/19 04:00 Temp 36.7 Pulse 76 Resp 16 B/P (MAP) 137/85 (102) Pulse Ox 97 O2 Delivery Room Air Capillary Refill : Less Than 3 SecondsLess Than 3 Seconds I&O Intake and Output 04/18/19 00:00 Intake Total 690 ml Balance 690 ml Intake Oral 690 ml # Voids 5 General: Alert, Oriented X3, Cooperative HEENT: Atraumatic, PERRLA Neck: Supple, No JVD, No Thyromegaly Lungs: Clear to Auscultation, Normal Air Movement Heart: Regular Rate, Normal S1, Normal S2, No Murmurs Abdomen: Normal Bowel Sounds, Soft, No Tenderness, No Hepatosplenomegaly, No Ma sses Extremities: No Clubbing, No Cyanosis, No Edema, Normal Pulses, No Tender ness/Swelling Skin: No Rashes, No Breakdown, No Significant Lesion Neuro: Normal Gait, Normal Speech, Strength at 5/5 X4 Ext, Normal Tone, Sensation Intact Psych/Mental Status: Mental Status NL, Mood NL Results Lab Laboratory Tests 04/18/19 04:09 A/P-Cardiology Admission Diagnosis Chest pain Shortness of breath Hyperlipidemia Assessment/Plan Chest pain, unstable angina, improved, no chest pain was reported today. Coronary artery disease, severe stenosis at 2 segments of the right coronary artery successful deployment of 2 overlapping stents Angela 2.5 x 18 and 2.5 x 23 mm expanded to 2.7 mm with excellent results, mild disease at the distal right coronary artery and mid LAD otherwise nonobstructive disease Shortness of breath, improved. Hyperlipidemia, LDL 180, started on Lipitor 80 mg, monitor Family history of atherosclerosis Had a long discussion about medication, patient will need to be on aspirin, Plavix and Lipitor. Educated on post-catheter recovery. Arrangement for follow-up as an outpatient is recommended Clinical Quality Measures AMI/AHF: ASA po Prior to arrival: No DVT/VTE Risk/Contraindication: Risk Factor Score Per Nursin RFS Level Per Nursing on Admit: 1=Low/No VTE PPX KIARRA LAZAR MD Apr 18, 2019 07:42
[2019-04-18] MEDS ORDERED: ASPI-983 PO (07:44)
[2019-04-18] MEDS ORDERED: CLOP75TA28 PO (07:44)
[2019-04-18] MEDS ORDERED: ATOR80TA76 PO (07:44)
--- NOTE | 2019-04-18 07:45 | Discharge Inst-Post CATH ---
Discharge Inst-CATH/EP Problems Reviewed?: Yes Post Cardiac Cath/EP D/C Inst Follow Up/Plan Appointment with Dr. LAZAR's office in 2-4 weeks <b>CARDIAC CATH/EP PROCEDURE DISCHARGE INSTRUCTIONS</b> ACTIVITY * Go Home directly and rest. * Limit activity of the leg (or wrist if it was used) for 7 days including aerobics, swimming, jogging, bicycling, etc. * Restrict stair-climbing for 7 days if possible, if not, climb up with your non-cath leg, then bring together on the same step. * Avoid lifting, pushing, pulling or excessive movement of the affected extremity for 7 days. * Customary sexual activity may be resumed after 2 days-use caution not to use a position that strains or causes pain to the affected extremity. * No driving for 24 hours. * NO SMOKING. * Avoid straining for bowel movements for 7 days. * Gentle walking on level ground is allowed. * Returning to work will depend on the type of procedure and the results. Your doctor will discuss this with you. CALL YOUR DOCTOR FOR ANY OF THE FOLLOWING: *If bleeding from the puncture site occurs- Apply gentle pressure to site with clean cloth and call your doctor or EMS. * If a knot or lump forms under the skin, increases in size, or causes pain. * If bruising appears to be worsening or moving further down your leg instead of disappearing. * Temperature above 101 F. CARE OF YOUR GROIN INCISION; * Bruising or purple discoloration of the skin near the puncture site is common. * You may shower only, no bathtub bathing for 5 days. Be careful to avoid slipping as your leg may feel stiff. * If a closure device was used on your femoral artery, please see the attached guide regarding care of the device and your leg. * Leave dressing on FOR 24 hours. CARE OF YOUR WRIST INCISION; * Bruising or purple discoloration of the skin near the puncture site is common. * You may shower. * DO NOT submerge wrist. * Leave dressing on FOR 24 hours. KIARRA LAZAR MD Apr 18, 2019 07:45
--- NOTE | 2019-04-18 10:21 | Discharge Summary ---
Discharge Summary Hospital Course Was the Problem List Reviewed?: Yes Problems/Dx: (1) CAD (coronary artery disease) Status: Acute Qualifiers: (2) Chest pain Status: Acute (3) Elevated troponin Status: Acute (4) Hyperlipidemia Status: Chronic (5) Obesity Status: Chronic Qualifiers: (6) Essential hypertension Status: Chronic (7) GERD (gastroesophageal reflux disease) Status: Chronic Qualifiers: Qualified Codes: K21.9 - Gastro-esophageal reflux disease without esophagitis Hospital Course Date of Admission: Apr 15, 2019 at 18:20 Admission Diagnosis : chest pain Family Physician/Provider: No,Local Physician Date of Discharge: 04/18/19 Discharge Diagnosis: coronary artery disease Hospital Course: Marie Fuller is a 48-year-old female with past medical history of hypertension, hyperlipidemia, obesity, who presented with chest pain and was treated for coronary artery disease. She underwent a left heart catheterization with cardiology and had 2 stents placed in her right coronary artery. She was started on aspirin and Plavix. She also had a dyslipidemia and was started on Lipitor. She should follow-up with cardiology. She needs to establish care with a primary care physician. Labs and Pending Lab Test: Laboratory Tests 04/18/19 04:09: White Blood Count 8.0, Red Blood Count 4.07L, Hemoglobin 11.7, Hematocrit 36, Mean Corpuscular Volume 87, Mean Corpuscular Hemoglobin 29, Mean Corpuscular Hemoglobin Concent 33, Red Cell Distribution Width 13.5, Platelet Count 195, Mean Platelet Volume 10.7H, Sodium Level 137, Potassium Level 3.9, Chloride Level 107, Carbon Dioxide Level 20L, Anion Gap 10, Blood Urea Nitrogen 10, C reatinine 0.76, Estimat Glomerular Filtration Rate > 60, BUN/Creatinine Ratio 13, Glucose Level 91, Calcium Level 8.5 Home Meds Active Aspirin EC (Aspirin) 81 Mg Tablet.dr 81 Mg PO DAILY Atorvastatin Calcium 80 Mg Tablet 80 Mg PO HS Clopidogrel (Clopidogrel Bisulfate) 75 Mg Tablet 75 Mg PO DAILY Reported Hair, Skin and Nails Tablet (Multivitamin/Folic Acid/Biotin) 1 Each Tablet 1 Each PO DAILY Omeprazole 20 Mg Capsule.dr 40 Mg PO DAILY Lisinopril-Hctz 20-12.5 mg Tab (Lisinopril/Hydrochlorothiazide) 1 Each Tablet 1 Tab PO DAILY Symbicort 160-4.5 Mcg Inhaler (Budesonide/Formoterol Fumarate) 10.2 Gm Hfa.aer.ad 2 Puff PO BID Assessment/Pt Instructions take medications as prescribed. Begin aspirin and Plavix for coronary artery disease with stenting. Establish care with a primary care physician. Follow-up with cardiology. Discharge Planning: <30 minutes discharge planning Discharge Instructions Discharge Diet: Low Sodium Diet Activity as Tolerated: Yes Discharge Physical Examination Vital Signs Vital Signs Date Time Temp Pulse Resp B/P (MAP) Pulse Ox O2 Delivery O2 Flow Rate FiO2 04/18/19 07:00 85 04/18/19 04:00 36.7 16 137/85 (102) 97 Room Air General Appearance: No Apparent Distress, WD/WN Respiratory: Lungs Clear, Normal Breath Sounds, No Respiratory Distress Cardiovascular: Regular Rate, Rhythm, No Edema, No Murmur Gastrointestinal: Normal Bowel Sounds, Non Tender, Soft Extremity: Normal Inspection, Non Tender, No Pedal Edema Skin: Normal Color, Warm/Dry Neurologic/Psychiatric: Alert, Oriented x3, No Motor/Sensory Deficits, Normal Mood/Affect Allergies: Coded Allergies: No Known Drug Allergies (Unverified , 04/15/19) Discharge Summary Date of Admission Apr 15, 2019 at 18:20 Date of Discharge Discharge Date: Apr 18, 2019 Discharge Time: 10:20 Admission Diagnosis Chest pain Consults/Procedures Consulations Cardiology Procedures left heart catheterization Discharge Diagnosis coronary artery disease (1) CAD (coronary artery disease) Status: Acute Qualifiers: (2) Chest pain Status: Acute (3) Elevated troponin Status: Acute (4) Hyperlipidemia Status: Chronic (5) Obesity Status: Chronic Qualifiers: (6) Essential hypertension Status: Chronic (7) GERD (gastroesophageal reflux disease) Status: Chronic Qualifiers: Qualified Codes: K21.9 - Gastro-esophageal reflux disease without esophagitis Clinical Quality Measures AMI/AHF: ASA po Prior to arrival: No DVT/VTE Risk/Contraindication: Risk Factor Score Per Nursin RFS Level Per Nursing on Admit: 1=Low/No VTE PPX PETRA FOUNTAIN MD Apr 18, 2019 10:21
== END 2019-04-18 10:10 | disposition home or self-care (01) ==
LOC: ER 16:50 → 4TH 18:20 → ICU 04-17 08:41 → CSD 04-17 17:30
PROVIDERS: ADMIT Internal Medicine; ATTEND Internal Medicine
DX: I25.110 Atherosclerotic heart disease of native coronary artery with unstable angina pectoris (principal); I10 Essential (primary) hypertension; E78.5 Hyperlipidemia, unspecified; K21.9 Gastro-esophageal reflux disease without esophagitis; R79.89 Other specified abnormal findings of blood chemistry; E66.9 Obesity, unspecified; Z68.35 Body mass index [BMI] 35.0-35.9, adult; Z90.89 Acquired absence of other organs
CPT/HCPCS: 36415; 71045; 80048; 80053; 80061; 80306; 81000; 83690; 83735; 83874; 84484; 84703; 85025; 85027; 85379; 85610; 85730; 93005; 93306; 93458; G0378

== ENCOUNTER 2019-07-28 14:19 | Emergency (ER) | payer OTHER ==
[~2019-07-28] VITALS: Ht 162 cm; Wt 92.1 kg
[~2019-07-28 14:19] MED LIST: ASPI-983 PO; ATOR80TA76 PO; BUDE10.2 PO; CLOP75TA28 PO; LISI1TAB25 PO; OMEP20CA18 PO; [UNRECOGNIZED DRUG - CODE] PO
--- OUTSIDE RECORDS SUMMARY | 2019-07-28 14:24 | XMS REPORT | Continuity of Care Document ---
Author Organization Unknown Address Unknown Phone Unavailable Allergies Active Description Code Type Severity Reaction Onset Reported/Identified Relationship to Patient Clinical Status Yes No Known Drug Allergies [id number] Drug Allergy Unknown N/A 04/15/2019 Medications There is no data. Problems Date Dx Coded Attending Type Code Diagnosis Diagnosed By 04/18/2019 PETRA FOUNTAIN MD, Ot E66. 9 OBESITY, UNSPECIFIED 04/18/2019 PETRA FOUNTAIN MD, Ot E78. 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 9 GASTRO-ESOPHAGEAL REFLUX DISEASE WITHOUT 04/18/2019 PETRA FOUNTAIN MD Ot R79. 89 OTHER SPECIFIED ABNORMAL FINDINGS OF BLO 04/18/2019 PETRA FOUNTAIN MD Ot Z68. 35 BODY MASS INDEX (BMI) 35.0-35.9, ADULT 04/18/2019 PETRA FOUNTAIN MD Ot Z90. 89 ACQUIRED ABSENCE OF OTHER ORGANS 05/04/2019 PETRA FOUNTAIN MD Ot E66. 9 OBESITY, UNSPECIFIED 05/04/2019 PETRA FOUNTAIN MD Ot E78. 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 9 GASTRO-ESOPHAGEAL REFLUX DISEASE WITHOUT 05/04/2019 PETRA FOUNTAIN MD Ot R79. 89 OTHER SPECIFIED ABNORMAL FINDINGS OF BLO 05/04/2019 PETRA FOUNTAIN MD Ot Z68. 35 BODY MASS INDEX (BMI) 35.0-35.9, ADULT 05/04/2019 PETRA FOUNTAIN MD Ot Z90. 89 ACQUIRED ABSENCE OF OTHER ORGANS 05/04/2019 PETRA FOUNTAIN MD Ot E66. 9 OBESITY, UNSPECIFIED 05/04/2019 PETRA FOUNTAIN MD Ot E78. 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 9 GASTRO-ESOPHAGEAL REFLUX DISEASE WITHOUT 05/04/2019 PETRA FOUNTAIN MD Ot R79. 89 OTHER SPECIFIED ABNORMAL FINDINGS OF BLO 05/04/2019 PETRA FOUNTAIN MD Ot Z68. 35 BODY MASS INDEX (BMI) 35.0-35.9, ADULT 05/04/2019 PETRA FOUNTAIN MD Ot Z90. 89 ACQUIRED ABSENCE OF OTHER ORGANS 05/04/2019 PETRA FOUNTAIN MD Ot E66. 9 OBESITY, UNSPECIFIED 05/04/2019 PETRA FOUNTAIN MD Ot E78. 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 9 GASTRO-ESOPHAGEAL REFLUX DISEASE WITHOUT 05/04/2019 PETRA FOUNTAIN MD Ot R79. 89 OTHER SPECIFIED ABNORMAL FINDINGS OF BLO 05/04/2019 PETRA FOUNTAIN MD Ot Z68. 35 BODY MASS INDEX (BMI) 35.0-35.9, ADULT 05/04/2019 PETRA FOUNTAIN MD Ot Z90. 89 ACQUIRED ABSENCE OF OTHER ORGANS 05/04/2019 PETRA FOUNTAIN MD Ot E66. 9 OBESITY, UNSPECIFIED 05/04/2019 PETRA FOUNTAIN MD Ot E78. 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 9 GASTRO-ESOPHAGEAL REFLUX DISEASE WITHOUT 05/04/2019 PETRA FOUNTAIN MD, Ot R79. 89 OTHER SPECIFIED ABNORMAL FINDINGS OF BLO 05/04/2019 PETRA FOUNTAIN MD, Ot Z68. 35 BODY MASS INDEX (BMI) 35.0-35.9, ADULT 05/04/2019 PETRA FOUNTAIN MD Ot Z90. 89 ACQUIRED ABSENCE OF OTHER ORGANS 05/08/2019 PETRA FOUNTAIN MD Ot E66. 9 OBESITY, UNSPECIFIED 05/08/2019 PETRA FOUNTAIN MD Ot E78. 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 9 GASTRO-ESOPHAGEAL REFLUX DISEASE WITHOUT 05/08/2019 PETRA FOUNTAIN MD, Ot R79. 89 OTHER SPECIFIED ABNORMAL FINDINGS OF BLO 05/08/2019 PETRA FOUNTAIN MD, Ot Z68. 35 BODY MASS INDEX (BMI) 35.0-35.9, ADULT 05/08/2019 PETRA FOUNTAIN MD, Ot Z90. 89 ACQUIRED ABSENCE OF OTHER ORGANS Procedures There is no data. Results Test Result Range Complete blood count (CBC) with automate d white blood cell (WBC) differential - 04/15/19 16:50 Blood leukocytes automated count (number/volume) 9.1 10*3/uL 4.3-11.0 Blood erythrocytes automated count (number/volume) 4.83 10*6/uL 4.35-5.85 Venous blood hemoglobin measurement (mass/volume) 14.2 g/dL 11.5-16.0 Blood hematocrit (volume fraction) 41 % 35-52 Automated erythrocyte mean corpuscular volume 85 [ foz_us] 80-99 Automated erythrocyte mean corpuscular h emoglobin (mass per erythrocyte) 29 pg 25-34 Automated erythrocyte mean corpuscular h emoglobin concentration measurement (mass/volume) 35 g/dL 32-36 Automated erythrocyte distribution width ratio 13. 7 % 10.0- 14.5 Automated blood platelet count (count/volume) 287 10*3/uL 130-400 Automated blood platelet mean volume measurement 11.2 [foz_us] 7.4-10.4 Automated blood neutrophils/100 leukocytes 65 % 42-75 Automated blood lymphocytes/100 leukocytes 26 % 12-44 Blood monocytes/100 leukocytes 8 % 0-12 Automated blood eosinophils/100 leukocytes 1 % 0-10 Automated blood basophils/100 leukocytes 0 % 0-10 Blood neutrophils automated count (number/volume) 5.9 10*3 1.8-7.8 Blood lymphocytes automated count (number/volume) 2.3 10*3 1.0-4.0 Blood monocytes automated count (number/volume) 0. 8 10*3 0.0-1.0 Automated eosinophil count 0.1 10*3/uL 0 .0-0.3 Automated blood basophil count (count/volume) 0.0 10*3/uL 0.0-0.1 PT panel in platelet poor plasma by coag ulation assay - 04/15/19 16:50 Prothrombin time (PT) in platelet poor plasma by coagu lation assay 13.1 s 12.2-14.7 INR in platelet poor plasma or blood by coagulation as say 1.0 0.8-1.4 Activated partial thromboplastin time (a PTT) in platelet poor plasma bycoagulation assay - 04/15/19 16:50 Activated partial thromboplastin time (a PTT) in platelet poor plasma bycoagulation assay 32 s 24-35 Fibrin D-dimer FEU measurement in platel et poor plasma (mass/volume) - 04/15/19 16:50 Fibrin D-dimer FEU measurement in platelet poor plasma (mass/volume) < ug/mL 0.00-0.49 Comprehensive metabolic panel - 04/15/19 16:50 Serum or plasma sodium measurement (moles/volume) 138 mmol/L 135-145 Serum or plasma potassium measurement (moles/volume) 3.3 mmol/L 3.6-5.0 Serum or plasma chloride measurement (moles/volume) 102 mmol/L 98-107 Carbon dioxide 24 mmol/L 21-32 Serum or plasma anion gap determination (moles/volume) 12 mmol/L 5-14 Serum or plasma urea nitrogen measurement (mass/volume ) 9 mg/dL 7-18 Serum or plasma creatinine measurement (mass/volume) 0.78 mg/dL 0.60-1.30 Serum or plasma urea nitrogen/creatinine mass ratio 12 NRG Serum or plasma creatinine measurement w ith calculation of estimated glomerular filtration rate > NRG Serum or plasma glucose measurement (mass/volume) 94 mg/dL 70-105 Serum or plasma calcium measurement (mass/volume) 9.7 mg/dL 8.5-10.1 Serum or plasma total bilirubin measurement (mass/volu me) 0.4 mg/dL 0.1-1.0 Serum or plasma alkaline phosphatase steffi surement (enzymatic activity/volume) 74 U/L 40-136 Serum or plasma aspartate aminotransfera se measurement (enzymatic activity/volume) 15 U/L 5-34 Serum or plasma alanine aminotransferase measurement (enzymatic activity/volume) 18 U/L 0-55 Serum or plasma protein measurement (mass/volume) 8.0 g/dL 6.4-8.2 Serum or plasma albumin measurement (mass/volume) 4.6 g/dL 3.2-4.5 Magnesium - 04/15/19 16:50 Magnesium 2.0 mg/dL 1.6-2.4 Myoglobin, serum - 04/15/19 16:50 Myoglobin, serum 35.3 ng/mL 10.0-92.0 Serum or plasma troponin i.cardiac measu rement (mass/volume) - 04/15/19 16:50 Serum or plasma troponin i.cardiac measurement (mass/v olume) < ng/mL <0.028 Lipase - 04/15/19 16:50 Lipase 27 U/L 8-78 Urine beta human chorionic gonadotropin (hCG) measurement - 04/15/19 18:27 Urine beta human chorionic gonadotropin (hCG) measurem ent NEGATIVE NEGATIVE Complete urinalysis with reflex to cultu re - 04/15/19 18:27 Urine color determination YELLOW NRG Urine clarity determination CLEAR NR G Urine pH measurement by test strip 6.5 5-9 Specific gravity of urine by test strip <= 1.016-1.022 Urine protein assay by test strip, semi-quantitative NEGATIVE NEGATIVE Urine glucose detection by automated test strip NE GATIVE NEGATIVE Erythrocytes detection in urine sediment by light micr oscopy NEGATIVE NEGATIVE Urine ketones detection by automated test strip NE GATIVE NEGATIVE Urine nitrite detection by test strip NEGATIVE NEGATIVE Urine total bilirubin detection by test strip NEGA TIVE NEGATIVE Urine urobilinogen measurement by automated test strip (mass/volume) 0.2 mg/dL < = 1.0 Urine leukocyte esterase detection by dipstick NEG ATIVE NEGATIVE Automated urine sediment erythrocyte cou nt by microscopy (number/high power field) NONE NRG Automated urine sediment leukocyte count by microscopy (number/high power field) NONE NRG Bacteria detection in urine sediment by light microsco py TRACE NRG Squamous epithelial cells detection in u rine sediment by light microscopy 2-5 NRG Crystals detection in urine sediment by light microsco py NONE NRG Casts detection in urine sediment by light microscopy NONE NRG Mucus detection in urine sediment by light microscopy NEGATIVE NRG Complete urinalysis with reflex to culture NO NRG Urine drug screening test - 04/15/19 18: 27 Urine phencyclidine detection by screening method NEGATIVE NEGATIVE Urine benzodiazepines detection by screening method NEGATIVE NEGATIVE Urine cocaine detection NEGATIVE NEGATI VE Urine amphetamines detection by screening method N EGATIVE NEGATIVE Urine methamphetamine detection by screening method NEGATIVE NEGATIVE Urine cannabinoids detection by screening method N EGATIVE NEGATIVE Urine opiates detection by screening method NEGATI VE NEGATIVE Urine barbiturates detection NEGATIVE N EGATIVE Screening urine tricyclic antidepressants detection NEGATIVE NEGATIVE Urine methadone detection by screening method NEGA TIVE NEGATIVE Urine oxycodone detection NEGATIVE NEGA TIVE Urine propoxyphene detection NEGATIVE N EGATIVE Serum or plasma troponin i.cardiac measu rement (mass/volume) - 04/15/19 23:10 Serum or plasma troponin i.cardiac measurement (mass/v olume) < ng/mL <0.028 Complete blood count (CBC) with automate d white blood cell (WBC) differential - 04/16/19 06:06 Blood leukocytes automated count (number/volume) 6.1 10*3/uL 4.3-11.0 Blood erythrocytes automated count (number/volume) 4.43 10*6/uL 4.35-5.85 Venous blood hemoglobin measurement (mass/volume) 12.8 g/dL 11.5-16.0 Blood hematocrit (volume fraction) 38 % 35-52 Automated erythrocyte mean corpuscular volume 87 [ foz_us] 80-99 Automated erythrocyte mean corpuscular h emoglobin (mass per erythrocyte) 29 pg 25-34 Automated erythrocyte mean corpuscular h emoglobin concentration measurement (mass/volume) 33 g/dL 32-36 Automated erythrocyte distribution width ratio 13. 6 % 10.0- 14.5 Automated blood platelet count (count/volume) 222 10*3/uL 130-400 Automated blood platelet mean volume measurement 10.9 [foz_us] 7.4-10.4 Automated blood neutrophils/100 leukocytes 60 % 42-75 Automated blood lymphocytes/100 leukocytes 29 % 12-44 Blood monocytes/100 leukocytes 10 % 0-12 Automated blood eosinophils/100 leukocytes 1 % 0-10 Automated blood basophils/100 leukocytes 0 % 0-10 Blood neutrophils automated count (number/volume) 3.7 10*3 1.8-7.8 Blood lymphocytes automated count (number/volume) 1.8 10*3 1.0-4.0 Blood monocytes automated count (number/volume) 0. 6 10*3 0.0-1.0 Automated eosinophil count 0.1 10*3/uL 0 .0-0.3 Automated blood basophil count (count/volume) 0.0 10*3/uL 0.0-0.1 Comprehensive metabolic panel - 04/16/19 06:06 Serum or plasma sodium measurement (moles/volume) 140 mmol/L 135-145 Serum or plasma potassium measurement (moles/volume) 3.8 mmol/L 3.6-5.0 Serum or plasma chloride measurement (moles/volume) 105 mmol/L 98-107 Carbon dioxide 25 mmol/L 21-32 Serum or plasma anion gap determination (moles/volume) 10 mmol/L 5-14 Serum or plasma urea nitrogen measurement (mass/volume ) 9 mg/dL 7-18 Serum or plasma creatinine measurement (mass/volume) 0.81 mg/dL 0.60-1.30 Serum or plasma urea nitrogen/creatinine mass ratio 11 NRG Serum or plasma creatinine measurement w ith calculation of estimated glomerular filtration rate > NRG Serum or plasma glucose measurement (mass/volume) 94 mg/dL 70-105 Serum or plasma calcium measurement (mass/volume) 9.2 mg/dL 8.5-10.1 Serum or plasma total bilirubin measurement (mass/volu me) 0.4 mg/dL 0.1-1.0 Serum or plasma alkaline phosphatase steffi surement (enzymatic activity/volume) 71 U/L 40-136 Serum or plasma aspartate aminotransfera se measurement (enzymatic activity/volume) 13 U/L 5-34 Serum or plasma alanine aminotransferase measurement (enzymatic activity/volume) 14 U/L 0-55 Serum or plasma protein measurement (mass/volume) 6.6 g/dL 6.4-8.2 Serum or plasma albumin measurement (mass/volume) 3.8 g/dL 3.2-4.5 CALCIUM CORRECTED 9.4 mg/dL 8.5-10.1 Serum or plasma troponin i.cardiac measu rement (mass/volume) - 04/16/19 06:06 Serum or plasma troponin i.cardiac measurement (mass/v olume) 0.039 ng/mL <0.028 Lipid 1996 panel - 04/16/19 06:06 Serum or plasma triglyceride measurement (mass/volume) 107 mg/dL <150 Serum or plasma cholesterol measurement (mass/volume) 246 mg/dL < 200 Serum or plasma cholesterol in HDL measurement (mass/v olume) 68 mg/dL 40-60 Cholesterol in LDL [mass/volume] in serum or plasma by direct assay 180 mg/dL 1-129 Serum or plasma cholesterol in VLDL measurement (mass/ volume) 21 mg/dL 5-40 Automated blood complete blood count (he mogram) panel - 04/18/19 04:09 Blood leukocytes automated count (number/volume) 8.0 10*3/uL 4.3-11.0 Blood erythrocytes automated count (number/volume) 4.07 10*6/uL 4.35-5.85 Venous blood hemoglobin measurement (mass/volume) 11.7 g/dL 11.5-16.0 Blood hematocrit (volume fraction) 36 % 35-52 Automated erythrocyte mean corpuscular volume 87 [ foz_us] 80-99 Automated erythrocyte mean corpuscular h emoglobin (mass per erythrocyte) 29 pg 25-34 Automated erythrocyte mean corpuscular h emoglobin concentration measurement (mass/volume) 33 g/dL 32-36 Automated erythrocyte distribution width ratio 13. 5 % 10.0- 14.5 Automated blood platelet count (count/volume) 195 10*3/uL 130-400 Automated blood platelet mean volume measurement 10.7 [foz_us] 7.4-10.4 Whole blood basic metabolic panel - 03/31 04:09 Serum or plasma sodium measurement (moles/volume) 137 mmol/L 135-145 Serum or plasma potassium measurement (moles/volume) 3.9 mmol/L 3.6-5.0 Serum or plasma chloride measurement (moles/volume) 107 mmol/L 98-107 Carbon dioxide 20 mmol/L 21-32 Serum or plasma anion gap determination (moles/volume) 10 mmol/L 5-14 Serum or plasma urea nitrogen measurement (mass/volume ) 10 mg/dL 7-18 Serum or plasma creatinine measurement (mass/volume) 0.76 mg/dL 0.60-1.30 Serum or plasma urea nitrogen/creatinine mass ratio 13 NRG Serum or plasma creatinine measurement w ith calculation of estimated glomerular filtration rate > NRG Serum or plasma glucose measurement (mass/volume) 91 mg/dL 70-105 Serum or plasma calcium measurement (mass/volume) 8.5 mg/dL 8.5-10.1 Encounters ACCT No. Visit Date/Time Discharge Status Pt. Type Provider Facility Loc./Unit Complaint [id number] 04/15/2019 19:10:00 020 10:10:00 DIS Outpatient АЛЕКСАНДР COPELAND, PETRA Fabian [facility] CATH CHEST PAIN R/O ACS
--- NOTE | 2019-07-28 15:43 | Diagnostic Imaging Report ---
EXAMINATION: Right tibia and fibula 2 views. HISTORY: Trauma. COMPARISON: None available. FINDINGS: Alignment is normal. No fracture is seen. There is a small heel spur. IMPRESSION: No fracture. Dictated by: Dictated on workstation # [id number]
--- NOTE | 2019-07-28 16:14 | ED Lower Extremity ---
General Chief Complaint: Lower Extremity Stated Complaint: R LEG INJ Nursing Triage Note: PT AMBULATES TO FT2 FAVORING HER R LEG, PT STATES SHE FELL WALKING UP HER DECK LAST NIGHT, HAS BEEN ABLE TO BEAR WT. TODAY BUT HAS CONCERNS OF A FX. DARK BRUISING NOTED TO R FREEMAN, PT STATES SHE IS ON BLOOD THINNERS Nursing Sepsis Screen: No Definite Risk Source: patient Exam Limitations: no limitations History of Present Illness Date Seen by Provider: July 28, 2019 Time Seen by Provider: 15:10 Initial Comments This 49-year-old woman presents to the emergency room with injury to the right leg. Yesterday she fell on her deck stairs striking her anterior lower leg on the stairway. She takes Plavix for heart disease. She has extensive bruising on the anterior right lower leg. She was concerned this morning when she woke with numbness and coolness to her foot. She remains ambulatory. She has been icing her injury. Allergies and Home Medications Allergies Coded Allergies: No Known Drug Allergies (Unverified , 04/15/19) Home Medications Aspirin 81 Mg Tablet., 81 MG PO DAILY Prescribed by: KIARRA LAZAR on 04/18/19 0744 Atorvastatin Calcium 80 Mg Tablet, 80 MG PO HS Prescribed by: KIARRA LAZAR on 04/18/19 0744 Budesonide/Formoterol Fumarate 10.2 Gm Hfa.aer.ad, 2 PUFF PO BID, (Reported) Clopidogrel Bisulfate 75 Mg Tablet, 75 MG PO DAILY Prescribed by: KIARRA LAZAR on 04/18/19 0744 Lisinopril/Hydrochlorothiazide 1 Each Tablet, 1 TAB PO DAILY, (Reported) Multivitamin/Folic Acid/Biotin 1 Each Tablet, 1 EACH PO DAILY, (Reported) Omeprazole 20 Mg Capsule.dr, 40 MG PO DAILY, (Reported) Patient Home Medication List Home Medication List Reviewed: Yes Review of Systems Constitutional: no symptoms reported EENTM: no symptoms reported Respiratory: no symptoms reported Cardiovascular: see HPI Gastrointestinal: no symptoms reported Genitourinary: no symptoms reported : No Musculoskeletal: see HPI Skin: see HPI Psychiatric/Neurological: See HPI Past Ehlvpeh-Jglhvg-Moevzv Hx Past Med/Social Hx: Reviewed Nursing Past Med/Soc Hx Patient Social History Alcohol Use: Occasionally Uses Alcohol Beverage of Choice: Wine Recreational Drug Use: No Smoking Status: Never a Smoker Recent Foreign Travel: No Contact w/Someone Who Travel: No Recent Infectious Disease Expo: No Recent Hopitalizations: No Immunizations Up To Date Tetanus Booster (TDap): Less than 5yrs PED Vaccines UTD: Yes Date of Pneumonia Vaccine: Apr 15, 2018 Date of Influenza Vaccine: Dec 13, 2018 Past Medical History Surgeries: Yes Adenoidectomy, Appendectomy, Coronary Stent, Orthopedic, Tonsillectomy Asthma Cardiac: Yes Coronary Artery Disease, Hypertension Neurological: No : No Last Menstrual Period: July 28, 2019 [employer]OTH [employer]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 oz. kg; 35.00 BMI Method: General Appearance: WD/WN, no apparent distress HEENT: normal ENT inspection Neck: normal inspection Cardiovascular: regular rate, rhythm, no edema, no murmur Respiratory: lungs clear, normal breath sounds, no respiratory distress Legs: right leg bone tenderness, right leg ecchymosis, right leg pain, right leg swelling Knees: right knee non-tender, right knee normal inspection, right knee normal range of motion, right knee no evidence of injury Ankles: right ankle non-tender, right ankle normal inspection, right ankle normal range of motion, right ankle no evidence of injury Feet: right foot non-tender, right foot normal inspection, right foot normal range of motion, right foot no evidence of injury, right foot other (Normal capillary refill and sensation. 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 See report below: NAME: KEMAL MCBRIDE [facility] REC#: [id number] PT STATUS: REG ER : 1970 PHYSICIAN: MARINE PATEL MD ADMIT DATE: 07/28/19/ER Signed Date of Exam:07/28/19 TIBIA/FIBULA, RIGHT, 2 VIEWS EXAMINATION: Right tibia and fibula 2 views. HISTORY: Trauma. COMPARISON: None available. FINDINGS: Alignment is normal. No fracture is seen. There is a small heel spur. IMPRESSION: No fracture. Dictated by: Dictated on workstation # [id number] Dict: 07/28/19 1538 Trans: 07/28/19 1545 [facility] [id number] Interpreted by: GUSTAVO DOVE MD Electronically signed by: GUSTAVO DOVE MD 07/28/19 1545 Departure Impression Primary Impression: Contusion of right leg Qualified Codes: S80.11XA - Contusion of right lower leg, initial encounter Additional Impression: Fall on stairs Qualified Codes: W10.9XXA - Fall (on) (from) unspecified stairs and steps, initial encounter Disposition: 01 HOME, SELF-CARE Condition: Stable Departure-Patient Inst. Decision time for Depature: 16:17 Referrals: TOO LYNN DO (PCP/Family) Primary Care Physician Patient Instructions: Contusion (DC) Add. Discharge Instructions: To reduce pain and swelling you may do the followin. Tylenol (acetaminophen) up to 1000 mg every 6 hours as needed. 2. Elevation 3. 20 minute intervals of icing. 4. Compression with Rick bandage. Expect migration and spreading of the bruise over the next 1-2 weeks. Then it should dissipate. Return to care if you have worsening symptoms or concerns about the circulation to your foot. All discharge instructions reviewed with patient and/or family. Voiced understanding. MARINE PATEL MD July 28, 2019 16:14
[2019-07-28 16:33] VITALS: BP 145/90
== END 2019-07-28 16:33 | disposition home or self-care (01) ==
LOC: EDUNIT# 14:19 → ER 14:20
DX: S80.11XA Contusion of right lower leg, initial encounter (principal); I10 Essential (primary) hypertension; I25.10 Atherosclerotic heart disease of native coronary artery without angina pectoris; J45.909 Unspecified asthma, uncomplicated; K21.9 Gastro-esophageal reflux disease without esophagitis; Z79.02 Long term (current) use of antithrombotics/antiplatelets; Z79.82 Long term (current) use of aspirin; W10.9XXA Fall (on) (from) unspecified stairs and steps, initial encounter
CPT/HCPCS: 73590; 99283

== ENCOUNTER → 2019-10-28 | Outpatient (CLI) | payer OTHER ==
--- NOTE | 2019-10-28 10:55 | Diagnostic Imaging Report ---
INDICATION: Asthma and dyspnea. TECHNIQUE: PA and lateral views of the chest were obtained. FINDINGS: The heart size, mediastinal configuration, and pulmonary vascularity are within normal limits. There is no pleural effusion, pneumothorax, or pneumonia. The osseous structures are unremarkable. IMPRESSION: No acute cardiopulmonary abnormality. Dictated by: Dictated on workstation # [id number]
== END ==
LOC: RAD 10:33
PROVIDERS: ATTEND Nurse Practitioner Family
DX: J45.909 Unspecified asthma, uncomplicated (principal); G47.9 Sleep disorder, unspecified
CPT/HCPCS: 71046

== ENCOUNTER 2019-11-11 12:36 | Outpatient (CLI) | payer OTHER ==
[~2019-11-11 12:36] MED LIST changes: +ASPI-1238 PO; -ASPI-983 PO; -LISI1TAB25 PO; +LISI1TAB46 PO
[2019-11-11] MEDS ORDERED: RT-ALBUTEROL SULF 2.5 MG/3 ML PRE-MIX VIAL INH ONE (13:00)
== END 2019-11-11 13:52 | disposition home or self-care (01) ==
LOC: RT 12:36
PROVIDERS: ATTEND Nurse Practitioner Family
DX: J45.909 Unspecified asthma, uncomplicated (principal); G47.9 Sleep disorder, unspecified
CPT/HCPCS: 94060; 94726; 94729; G0399

== ENCOUNTER → 2020-02-05 | Outpatient (CLI) | payer OTHER ==
[~2020-02-05] MED LIST changes: +MTP25TSR PO; +NF-VITD400 PO; +RT-ALBUINH INH; +VITA-203 PO
== END ==
LOC: CARD 07:45
PROVIDERS: ATTEND Physician Assistant
DX: Z53.9 Procedure and treatment not carried out, unspecified reason (principal); I25.10 Atherosclerotic heart disease of native coronary artery without angina pectoris; E78.2 Mixed hyperlipidemia; G47.33 Obstructive sleep apnea (adult) (pediatric); R00.2 Palpitations

== ENCOUNTER → 2020-02-05 | Outpatient (CLI) | payer OTHER ==
[~2020-02-05] MED LIST changes: -MTP25TSR PO; -NF-VITD400 PO; -RT-ALBUINH INH; -VITA-203 PO
== END ==
LOC: CARD 08:08
PROVIDERS: ATTEND Internal Medicine Cardiovascular Disease
DX: R07.9 Chest pain, unspecified (principal)
CPT/HCPCS: 93351

== ENCOUNTER 2020-02-12 08:00 | Day surgery (SDC) | payer OTHER ==
[~2020-02-12] VITALS: Ht 162 cm; Wt 103.0 kg
[2020-02-12] VITALS (12 sets, daily range): BP systolic 132–170; BP diastolic 71–98
[2020-02-12 07:30] LABS: HEMOGLOBIN 11.5 g/dL (11.5-16.0); MEAN PLATELET VOLUME 10.9 fL (9.0-12.2); WHITE BLOOD COUNT 5.7 10^3/uL (4.3-11.0)
[2020-02-12 07:41] LABS: INR 0.9 (0.8-1.4); PROTHROMBIN TIME PATIENT 12.9 SEC (12.2-14.7)
[2020-02-12 07:48] LABS: ALANINE AMINOTRANSFERASE 16 U/L (0-55); ALBUMIN 3.8 GM/DL (3.2-4.5); ALKALINE PHOSPHATASE 82 U/L (40-136); BILIRUBIN,TOTAL 0.5 MG/DL (0.1-1.0); BUN/CREATININE RATIO 10; CALCIUM 8.7 MG/DL (8.5-10.1); CARBON DIOXIDE 23 MMOL/L (21-32); CHLORIDE 105 MMOL/L (98-107); CHOLESTEROL 187 MG/DL (< 200); CREATININE SERUM 0.82 MG/DL (0.60-1.30); GFR ESTIMATED > 60; GLUCOSE 105 MG/DL (70-105); HDL CHOLESTEROL 67 MG/DL (40-60); POTASSIUM 3.5 MMOL/L (3.6-5.0); SODIUM 140 MMOL/L (135-145); TRIGLYCERIDES 161 MG/DL (<150); VLDL CHOLESTEROL 32 MG/DL (5-40)
--- NOTE | 2020-02-12 07:51 | Diagnostic Imaging Report ---
INDICATION: Preop coronary arteriogram. Comparison with 10/28/2019. FINDINGS: Portable chest show the lungs to be well-aerated and clear. The heart is not enlarged. No pulmonary edema or hilar adenopathy. No bony abnormalities. No pneumothorax or pleural effusion. IMPRESSION: Normal portable chest. Dictated by: Dictated on workstation # [id number]
[~2020-02-12 08:00] MED LIST changes: +HEParin (CATH LAB) 2,000 ML IV ONE; +LIDOCAINE 1% INJ 20 ML 20 ML VIAL ONE; +MIDAZOLAM 5 MG/5 ML (VERSED) VIAL ONE; +MTP25TSR PO; +NF-VITD400 PO; +NS IV 1000 ML 1,000 ML IV SCH; +NS IV 1000 ML 1,000 ML ONE; +RT-ALBUINH INH; +VITA-203 PO; +fentaNYL INJECTION 100 MCG/2 ML AMP ONE
[2020-02-12] MEDS ORDERED: fentaNYL INJECTION 100 MCG/2 ML AMP ONE (08:16)
[2020-02-12] MEDS ORDERED: NITRO DRIP 25000 MCG/D5W 250 ML IV ONE (08:22)
--- NOTE | 2020-02-12 08:43 | Cardiac Procedure Note-CS/ASA ---
Pre-Procedure Note Pre-Op Procedure Note H&P Reviewed The H&P was reviewed, patient examined and no changes noted. Date H&P Reviewed: Feb 12, 2020 Time H&P Reviewed: 08:00 Conscious Sedation Pre-Proced Time 08:00 ASA Score 3 For ASA 3 and 4: Consider anesthesia and medical clearance. Also, for patients with a history of failed moderate sedation consider anesthesia. Airway Lungs Heart ASA score ASA 1: a normal healthy patient ASA 2: a patient with a mild systemic disease (mid diabetes, controlled hypertension, obesity x ASA 3: a patient with a severe systemic disease that limits activity (angina, COPD, prior Myocardial infarction) ASA 4: a patient with an incapacitating disease that is a constant threat to life (CHF, renal failure) ASA 5: a moribund patient not expected to survive 24 hrs. (ruptured aneurysm) ASA 6: a declared brain- patient whose organs are being harvested. For emergent operations, add the letter E after the classification Mallampati Classification Grade 3 Sedation Plan Analgesia, Amnesia, Plan communicated to team members, Discussed options with patient/fam, Discussed risks with patient/fam The patient is an appropriate candidate to undergo the planned procedure, sedation, and anesthesia. The patient immediately re-assessed prior to indication. KIARRA LAZAR MD Feb 12, 2020 08:43
[2020-02-12] MEDS ORDERED: PATIENT MAY USE OWN MEDS, ALL PO SCH (08:45)
[2020-02-12] MEDS ORDERED: NS IV 1000 ML 1,000 ML IV SCH (08:45)
--- NOTE | 2020-02-12 08:45 | Discharge Inst-Post CATH ---
Discharge Inst-CATH/EP Problems Reviewed?: Yes Post Cardiac Cath/EP D/C Inst Follow Up/Plan Appointment with Dr Abraham's office in 4 weeks <b>CARDIAC CATH/EP PROCEDURE DISCHARGE INSTRUCTIONS</b> ACTIVITY * Go Home directly and rest. * Limit activity of the leg (or wrist if it was used) for 7 days including aerobics, swimming, jogging, bicycling, etc. * Restrict stair-climbing for 7 days if possible, if not, climb up with your non-cath leg, then bring together on the same step. * Avoid lifting, pushing, pulling or excessive movement of the affected extremity for 7 days. * Customary sexual activity may be resumed after 2 days-use caution not to use a position that strains or causes pain to the affected extremity. * No driving for 24 hours. * NO SMOKING. * Avoid straining for bowel movements for 7 days. * Gentle walking on level ground is allowed. * Returning to work will depend on the type of procedure and the results. Your doctor will discuss this with you. CALL YOUR DOCTOR FOR ANY OF THE FOLLOWING: *If bleeding from the puncture site occurs- Apply gentle pressure to site with clean cloth and call your doctor or EMS. * If a knot or lump forms under the skin, increases in size, or causes pain. * If bruising appears to be worsening or moving further down your leg instead of disappearing. * Temperature above 101 F. CARE OF YOUR GROIN INCISION; * Bruising or purple discoloration of the skin near the puncture site is common. * You may shower only, no bathtub bathing for 5 days. Be careful to avoid slipping as your leg may feel stiff. * If a closure device was used on your femoral artery, please see the attached guide regarding care of the device and your leg. * Leave dressing on FOR 24 hours. CARE OF YOUR WRIST INCISION; * Bruising or purple discoloration of the skin near the puncture site is common. * You may shower. * DO NOT submerge wrist. * Leave dressing on FOR 24 hours. KIARRA ABRAHAM MD Feb 12, 2020 08:45
--- NOTE | 2020-02-12 08:56 | Cardiac Cath Report ---
Cardiac Cath Report Physician (s)/Excel Vba Developer (s) Physician KIARRA LAZAR MD Pre-Procedure Diagnosis Pre-Procedure Diagnosis: Unstable angina Post-Procedure Note Procedure Start Date: Feb 12, 2020 Name of Procedure: Left heart catheterization Left ventriculogram Findings/Procedure Note PROCEDURE NOTE: 49 years old lady with history of coronary artery disease had 2 stents to the right coronary artery, has been having chest pain, had an abnormal stress test with anterior wall and apical ischemia scheduled for cardiac catheterization. After explaining the procedure to the patient, all pros and cons were explained, all questions were answered. The patient signed the consent and then she was placed on the cardiac catheterization laboratory. Groin was prepped SL fashion local anesthesia was used. Sheath placed in the right femoral artery. Robert right and left catheter were used to access the coronary system. Pigtail was used to access the left ventricular cavity. Left ventriculogram was done At the end of the procedure the sheath was removed. Closure device was used FINDINGS: Hemodynamics LV 150/21, end-diastolic pressure of 21 Aorta 144/85 mean of 114 ANATOMY: Left Main is free of obstructive disease Left Anterior Descending has mild to moderate disease proximally, the first diagonal artery that is wrapped around the apex artery is totally occluded proximally, reconstructed by collateral appeared to be smaller artery in size, I give the patient intracoronary nitroglycerin and reevaluated the artery that appear to be about 2 mm in diameter. Left Circumflex is moderate in size with no obstructive disease Right Coronory Artery is dominant artery with patent proximal and mid stenting, 50-60 percent stenosis distally LV Gram was done showing mild hypokinesia at anterior wall and estimated ejection fraction 50 percent CONCLUSION: 1. Total occlusion of the first diagonal artery that is wrapped around the apex, reconstructed by collaterals, appeared to be smaller artery, will be amendable for high risk intervention 2. Patent toxoid and mid stent in the right coronary artery with moderate disease distally 3. Normal left ventricular size, ejection fraction 50 percent DISCUSSION AND RECOMMENDATION: Patient will require high risk intervention for the diagonal artery for CHILDREN'S [employer]OR, I will refer her to Dr. Foster for evaluation, consideration for single-vessel bypass versus high risk intervention Anesthesia Type: Conscious Sedation Estimated blood loss (mL): 25 ml Contrast Amount: 65 ml Total Radiation Dose: 615 mGy Post-Procedure Diagnosis Post-operative diagnosis: Unstable angina Coronary artery disease Hypertension Hyperlipidemia KIARRA LAZAR MD Feb 12, 2020 08:56
== END 2020-02-12 13:25 | disposition home or self-care (01) ==
LOC: CATH 08:00 → SDC 08:56 → CATH 13:25
PROVIDERS: ATTEND Internal Medicine Cardiovascular Disease
DX: I25.110 Atherosclerotic heart disease of native coronary artery with unstable angina pectoris (principal); I10 Essential (primary) hypertension; E78.5 Hyperlipidemia, unspecified; E78.2 Mixed hyperlipidemia; G47.33 Obstructive sleep apnea (adult) (pediatric); J45.909 Unspecified asthma, uncomplicated; E66.9 Obesity, unspecified; Z68.39 Body mass index [BMI] 39.0-39.9, adult; Z79.82 Long term (current) use of aspirin; Z79.51 Long term (current) use of inhaled steroids; Z79.899 Other long term (current) drug therapy; Z88.2 Allergy status to sulfonamides; Z95.5 Presence of coronary angioplasty implant and graft
CPT/HCPCS: 71045; 80053; 80061; 85027; 85610; 85730; 87081; 93458; C1760; C1894; 36415

== ENCOUNTER → 2020-03-09 | Outpatient (CLI) | payer OTHER ==
[~2020-03-09] MED LIST changes: -HEParin (CATH LAB) 2,000 ML IV ONE; -LIDOCAINE 1% INJ 20 ML 20 ML VIAL ONE; -MIDAZOLAM 5 MG/5 ML (VERSED) VIAL ONE; -NS IV 1000 ML 1,000 ML IV SCH; -NS IV 1000 ML 1,000 ML ONE; -fentaNYL INJECTION 100 MCG/2 ML AMP ONE
--- NOTE | 2020-03-09 11:11 | Diagnostic Imaging Report ---
INDICATION: ASTHMA COMPARISON: 02/12/2020. FINDINGS: Frontal and lateral views of the chest demonstrate normal heart size and pulmonary vascularity. The lungs are clear. There are no signs of infiltrate, pleural effusions or pneumothoraces. The visualized osseous structures show no acute abnormalities. IMPRESSION: 1. No acute process. No signs of infiltrates, effusions or pneumothoraces. Dictated by: Dictated on workstation # [id number]
== END ==
LOC: RAD 10:49
PROVIDERS: ATTEND Nurse Practitioner Family
DX: J45.909 Unspecified asthma, uncomplicated (principal)
CPT/HCPCS: 71046

== ENCOUNTER → 2020-09-21 | Outpatient (CLI) | payer OTHER ==
--- NOTE | 2020-09-21 16:26 | Diagnostic Imaging Report ---
INDICATION: Routine screening. COMPARISON: No prior mammograms are available for comparison. This is a baseline study. TECHNIQUE: 2D and 3D bilateral screening mammography was performed with CAD. FINDINGS: Both breasts are heterogeneously dense, limiting the sensitivity of mammography. No mass or malignant-appearing microcalcifications are seen. The axillae are unremarkable. IMPRESSION: No mammographic features suspicious for malignancy are identified. ACR BI-RADS Category 1: Negative. Result letter will be mailed to the patient. Note: At least 10% of breast cancer is not imaged by mammography. Dictated by: Dictated on workstation # [id number]
== END ==
LOC: RAD 09:30
PROVIDERS: ATTEND Nurse Practitioner Family
DX: Z12.31 Encounter for screening mammogram for malignant neoplasm of breast (principal)
CPT/HCPCS: 77063; 77067

== ENCOUNTER → 2021-01-06 | Outpatient (CLI) | payer OTHER | LOC: CARD 08:30 | PROVIDERS: ATTEND Physician Assistant | DX: I34.0 Nonrheumatic mitral (valve) insufficiency (principal); I11.9 Hypertensive heart disease without heart failure; I25.10 Atherosclerotic heart disease of native coronary artery without angina pectoris | CPT/HCPCS: 93306 ==

== ENCOUNTER → 2021-01-11 | Outpatient (CLI) | payer OTHER ==
[~2021-01-11] VITALS: Ht 162 cm; Wt 94.0 kg
[~2021-01-11] MED LIST changes: +CATHETER FLUSH 10 ML SYR IV PRN
[2021-01-11 09:06] VITALS: BP 147/89
[2021-01-11 09:15] VITALS: BP 156/102
--- NOTE | 2021-01-11 12:34 | Cardiology Stress Test Report ---
Stress Test Report Date of Procedure/Referring: Date of Procedure: Jan 11, 2021 Monica Burger Admitting Physician Jimmy Ricketts DO Indications: HTN Baseline Heart Rate: 77 Baseline Blood Pressure: Blood Pressure Systolic: 156 Blood Pressure Diastolic: 102 Vital Signs Date Time Temp Pulse Resp B/P (MAP) Pulse Ox O2 Delivery O2 Flow Rate FiO2 01/11/21 09:06 133 19 147/89 (108) Baseline Vital Signs Vital Signs Date Time Temp Pulse Resp B/P (MAP) Pulse Ox O2 Delivery O2 Flow Rate FiO2 01/11/21 09:06 133 19 147/89 (108) Baseline EKG: Baseline EKG: NSR Summary: After explaining the procedure and details to the patient, she signed the consent and was brought to the stress nuclear laboratory. Patient exercised on standard Maurice protocol, EKG, heart rate and blood pressure were monitored continuously, resting and stress doses of radio tracer were injected, imaging was acquired and reviewed in the short axis, horizontal long axis and vertical long axis views Patient was able to exercise for a total of 5 minutes on Maurice protocol, METs 7 Maximum heart rate 155 Maximum blood pressure 197/101 Stress EKG, Minimal nondiagnostic changes Recovery EKG, Return to baseline TID: 1.13 SSS: 12 SDS: 11 EF: 65 Conclusion: 1. Fair exercise tolerance for a total of 5 minutes on standard Maurice protocol, seven METS achieving 91% of maximal expected heart rate 2. Appropriate heart rate response to exercise with hypertensive response to exercise with peak blood pressure 197/101 return to baseline during recovery 3. Nondiagnostic EKG changes with exercise with [address] depression in lead II, three, aVF, V4, V5. Return to baseline during recovery 4. Reversible ischemia involving the mid to apical anterior wall and anterolateral wall 5. Normal left ventricular size, EF 65% KIARRA LAZAR MD Jan 11, 2021 12:34
== END ==
LOC: CARD 07:45
PROVIDERS: ATTEND Physician Assistant
DX: I10 Essential (primary) hypertension (principal); I25.10 Atherosclerotic heart disease of native coronary artery without angina pectoris
CPT/HCPCS: 78452; 93017; A9502

== ENCOUNTER 2021-01-20 11:00 | Day surgery (SDC) | payer OTHER ==
[~2021-01-20] VITALS: Ht 162.5 cm; Wt 98.4 kg
[2021-01-20] VITALS (9 sets, daily range): BP systolic 122–169; BP diastolic 78–96
[2021-01-20 09:14] LABS: HEMATOCRIT 39 % (35-52); HEMOGLOBIN 12.3 g/dL (11.5-16.0); MEAN CORPUSCULAR HEMOGLOBIN 27 pg (25-34); MEAN CORPUSCULAR HGB CONC 32 g/dL (32-36); MEAN CORPUSCULAR VOLUME 84 fL (80-99); MEAN PLATELET VOLUME 10.9 fL (9.0-12.2); PLATELET COUNT 295 10^3/uL (130-400); WHITE BLOOD COUNT 6.2 10^3/uL (4.3-11.0)
--- NOTE | 2021-01-20 09:20 | Diagnostic Imaging Report ---
EXAMINATION: Chest 1 view HISTORY: abn stress cp cad hlp htn COMPARISON: 02/12/2020 FINDINGS: Heart size and pulmonary vasculature are normal. The lungs are clear without consolidation, pleural effusion, or pneumothorax. The osseous structures are intact. IMPRESSION: 1. No acute radiographic abnormality in the chest. Dictated by: Dictated on workstation # [id number]
[2021-01-20 09:30] LABS: INR 0.9 (0.8-1.4)
[2021-01-20 09:36] LABS: ALBUMIN 4.1 GM/DL (3.2-4.5); BILIRUBIN,TOTAL 0.5 MG/DL (0.1-1.0); CALCIUM 9.4 MG/DL (8.5-10.1); CREATININE SERUM 0.82 MG/DL (0.60-1.30); POTASSIUM 3.8 MMOL/L (3.6-5.0); TOTAL PROTEIN 7.5 GM/DL (6.4-8.2)
[~2021-01-20 11:00] MED LIST changes: -CATHETER FLUSH 10 ML SYR IV PRN; +HEParin (CATH LAB) 2,000 ML IV ONE; +HEParin 1000 UNIT/ML (10ML VIAL) FOR BOLUS ONE; +LIDOCAINE 1% INJ 20 ML 20 ML VIAL ONE; +MIDAZOLAM 5 MG/5 ML (VERSED) VIAL ONE; +NITRO DRIP 25000 MCG/D5W 250 ML IV ONE; +NS IV 1000 ML 1,000 ML IV SCH; +NS IV 1000 ML 1,000 ML ONE; +VERAPAMIL 5 MG/2 ML (CALAN) VIAL IV ONE; +fentaNYL INJ 100 MCG/2 ML AMP ONE
[2021-01-20] MEDS ORDERED: ADENOSINE 90 MG/30 ML (ADENOSCAN) VIAL IV ONE (11:16)
--- NOTE | 2021-01-20 11:34 | Conscious Sedation/ASA ---
Conscious Sedation Pre-Proced Time 11:34 ASA Score 3 For ASA 3 and 4: Consider anesthesia and medical clearance. Also, for patients with a history of failed moderate sedation consider anesthesia. Airway Lungs Heart ASA score ASA 1: a normal healthy patient ASA 2: a patient with a mild systemic disease (mid diabetes, controlled hypertension, obesity x ASA 3: a patient with a severe systemic disease that limits activity (angina, COPD, prior Myocardial infarction) ASA 4: a patient with an incapacitating disease that is a constant threat to life (CHF, renal failure) ASA 5: a moribund patient not expected to survive 24 hrs. (ruptured aneurysm) ASA 6: a declared brain- patient whose organs are being harvested. For emergent operations, add the letter E after the classification Mallampati Classification Grade 3 Sedation Plan Analgesia, Amnesia, Plan communicated to team members, Discussed options with patient/fam, Discussed risks with patient/fam The patient is an appropriate candidate to undergo the planned procedure, sedation, and anesthesia. The patient immediately re-assessed prior to indication. KIARRA LAZAR MD Jan 20, 2021 11:34
--- NOTE | 2021-01-20 11:36 | Discharge Inst-Post CATH ---
Discharge Inst-CATH/EP Problems Reviewed?: Yes Post Cardiac Cath/EP D/C Inst Follow Up/Plan Appointment with Dr. Abraham's office in 2 to 4 weeks <b>CARDIAC CATH/EP PROCEDURE DISCHARGE INSTRUCTIONS</b> ACTIVITY * Go Home directly and rest. * Limit activity of the leg (or wrist if it was used) for 7 days including aer obics, swimming, jogging, bicycling, etc. * Restrict stair-climbing for 7 days if possible, if not, climb up with your non-cath leg, then bring together on the same step. * Avoid lifting, pushing, pulling or excessive movement of the affected extremi ty for 7 days. * Customary sexual activity may be resumed after 2 days-use caution not to use a position that strains or causes pain to the affected extremity. * No driving for 24 hours. * NO SMOKING. * Avoid straining for bowel movements for 7 days. * Gentle walking on level ground is allowed. * Returning to work will depend on the type of procedure and the results. Your doctor will discuss this with you. CALL YOUR DOCTOR FOR ANY OF THE FOLLOWING: *If bleeding from the puncture site occurs- Apply gentle pressure to site with clean cloth and call your doctor or EMS. * If a knot or lump forms under the skin, increases in size, or causes pain. * If bruising appears to be worsening or moving further down your leg instead of disappearing. * Temperature above 101 F. CARE OF YOUR GROIN INCISION; * Bruising or purple discoloration of the skin near the puncture site is common. * You may shower only, no bathtub bathing for 5 days. Be careful to avoid slipping as your leg may feel stiff. * If a closure device was used on your femoral artery, please see the attached guide regarding care of the device and your leg. * Leave dressing on FOR 24 hours. CARE OF YOUR WRIST INCISION; * Bruising or purple discoloration of the skin near the puncture site is common. * You may shower. * DO NOT submerge wrist. * Leave dressing on FOR 24 hours. KIARRA ABRAHAM MD Jan 20, 2021 11:36
[2021-01-20] MEDS ORDERED: NS IV 1000 ML 1,000 ML IV SCH (11:45)
--- NOTE | 2021-01-20 11:47 | Cardiac Cath Report ---
Cardiac Cath Report Physician (s)/Post Form Remover (s) Physician KIARRA LAZAR MD Pre-Procedure Diagnosis Pre-Procedure Diagnosis: Unstable angina Post-Procedure Note Procedure Start Date: Jan 20, 2021 Name of Procedure: Left heart catheterization FFR to the LAD Findings/Procedure Note PROCEDURE NOTE: 50 years old lady with history of coronary artery disease multiple interventions in the past. Had an abnormal stress test scheduled for cardiac catheterization possible PTCA. After explaining the procedure to the patient, all pros and cons were explained, all questions were answered. The patient signed the consent and then she was placed on the cardiac catheterization laboratory. Groin was prepped SL fashion local anesthesia was used. Sheath placed in the right radial artery, [place] catheter was advanced to the right and left coronary system, exchanged and used Robert right catheter, intubated the right coronary artery and angiogram was done. Patient had multiple lesions in the LAD I decided to proceed with FFR. EBU guide was advanced to the left coronary system, FFR wire was advanced and parked in the distal LAD, the LAD has proximal lesion then distal lesion after a large first diagonal artery, the LAD itself tapered down into very small artery. Measurement of the FFR after the adenosine at the distal lesion was 0.72, at the proximal lesion was 0.91. At the end of the procedure the sheath was removed. Vascular band deployed FINDINGS: Hemodynamics LV 147/19, end-diastolic pressure of 19 Aorta 140/86 mean of 75 ANATOMY: Left Main is free of obstructive disease Left Anterior Descending has moderate stenosis proximally, FFR of the proximal lesion is 0.91. Distally, there was severe stenosis after the origin of diagonal branch, the artery tapered down into a very small artery, FFR 0.72. The diagonal branch has multiple stents and is patent with good flow distally. Left Circumflex has mild to moderate stenosis nonobstructive disease Right Coronary Artery has patent stent with mild disease nonobstructive disease CONCLUSION: 1. Patent stent in the large second diagonal branch with nonobstructive disease. Patent stent in the right coronary artery with mild disease nonobstructive disease 2. Moderate stenosis in the proximal LAD nonobstructive disease with FFR 0.91 3. Severe stenosis at the distal LAD with FFR 0.72 after the origin of the large diagonal branch, the artery is fairly small beyond that point, conservative management is recommended 4. Mildly elevated left ventricular end-diastolic pressure DISCUSSION AND RECOMMENDATION: Continue to maximize medical therapy. Anesthesia Type: Conscious Sedation Estimated blood loss (mL): 20 ml Contrast Amount: 89 ml Total Radiation Dose: 595 mGy Post-Procedure Diagnosis Post-operative diagnosis: Coronary artery disease Hypertension Hyperlipidemia Chest pain KIARRA LAZAR MD Jan 20, 2021 11:47
== END 2021-01-20 14:30 | disposition home or self-care (01) ==
LOC: SDC 11:45 → CATH 14:30
PROVIDERS: ATTEND Internal Medicine Cardiovascular Disease
DX: I25.110 Atherosclerotic heart disease of native coronary artery with unstable angina pectoris (principal); I10 Essential (primary) hypertension; E78.2 Mixed hyperlipidemia; Z79.82 Long term (current) use of aspirin; Z79.899 Other long term (current) drug therapy; Z79.02 Long term (current) use of antithrombotics/antiplatelets; Z90.89 Acquired absence of other organs
CPT/HCPCS: 71045; 80053; 80061; 85027; 85610; 85730; 87081; 93458; 93571; C1769; C1887; C1894; 36415

== ENCOUNTER 2021-10-13 05:32 | Outpatient (CLI) | payer BC, OTHER ==
[~2021-10-13] VITALS: Ht 162.6 cm; Wt 100.7 kg
[~2021-10-13 05:32] MED LIST changes: -HEParin (CATH LAB) 2,000 ML IV ONE; -HEParin 1000 UNIT/ML (10ML VIAL) FOR BOLUS ONE; -LIDOCAINE 1% INJ 20 ML 20 ML VIAL ONE; -MIDAZOLAM 5 MG/5 ML (VERSED) VIAL ONE; -NITRO DRIP 25000 MCG/D5W 250 ML IV ONE; -NS IV 1000 ML 1,000 ML IV SCH; -NS IV 1000 ML 1,000 ML ONE; -VERAPAMIL 5 MG/2 ML (CALAN) VIAL IV ONE; -fentaNYL INJ 100 MCG/2 ML AMP ONE
== END 2021-10-14 10:47 | disposition home or self-care (01) ==
LOC: PREOP 05:32
PROVIDERS: ATTEND Surgery
DX: Z01.818 Encounter for other preprocedural examination (principal); Z12.11 Encounter for screening for malignant neoplasm of colon

== ENCOUNTER → 2021-10-18 | Outpatient (CLI) | payer BC, OTHER ==
--- NOTE | 2021-10-18 12:57 | Diagnostic Imaging Report ---
INDICATION: Routine screening. COMPARISON: 09/21/2020. TECHNIQUE: 2D and 3D bilateral screening mammography was performed with CAD. FINDINGS: Both breasts are heterogeneously dense, limiting the sensitivity of mammography. The parenchymal pattern is stable. No mass or malignant-appearing microcalcifications are seen. The axillae are unremarkable. IMPRESSION: No mammographic features suspicious for malignancy are identified. ACR BI-RADS Category 1: Negative. Result letter will be mailed to the patient. Note: At least 10% of breast cancer is not imaged by mammography. Dictated by: Dictated on workstation # [id number]
== END ==
LOC: RAD 11:13
PROVIDERS: ATTEND Nurse Practitioner Family
DX: Z12.31 Encounter for screening mammogram for malignant neoplasm of breast (principal); Z00.01 Encounter for general adult medical examination with abnormal findings; I10 Essential (primary) hypertension; E66.8 Other obesity; K21.9 Gastro-esophageal reflux disease without esophagitis
CPT/HCPCS: 77063; 77067

== ENCOUNTER 2021-10-26 07:05 | Day surgery (SDC) | payer BC, OTHER ==
[~2021-10-26] VITALS: Ht 162.6 cm; Wt 100.7 kg
[2021-10-26] MEDS ORDERED: LACTATED RINGERS 1,000 ML IV STA (07:07)
[2021-10-26 07:24] VITALS: BP 150/93
[2021-10-26] MEDS ORDERED: PROPOFOL INJECTION 50 ML IV ONE ×3 (07:27→09:06)
[2021-10-26] MEDS ORDERED: MIDAZOLAM 2 MG/2 ML (VERSED) VIAL ONE (07:27)
[2021-10-26 08:40] VITALS: BP 104/64
[2021-10-26 08:45] VITALS: BP 101/63
--- NOTE | 2021-10-26 08:47 | Progress Note-Post Operative ---
Post-Operative Progess Note Surgeon (s)/Geospatial Intelligence Analyst (s) Surgeon DARÍO HUI DO Geospatial Intelligence Analyst: na Pre-Operative Diagnosis screening colonoscopy Post-Operative Diagnosis diverticulosis, colon polyps Procedure & Operative Findings Date of Procedure 10/26/21 Procedure Performed/Findings colonoscopy c hot bx polypectomy x Anesthesia Type per chief counsel Estimated Blood Loss Estimated blood loss (mL): none Specimens/Packing Specimens Removed colon polyps DARÍO HUI DO Oct 26, 2021 08:47
--- NOTE | 2021-10-26 08:50 | Discharge Inst-Simple/Standard ---
Discharge Inst-Standard Patient Instructions/Follow Up Plan of Care/Instructions/FU: 2 weeks Mirlande Restart plavix in 3 days. Activity as Tolerated: Yes Discharge Diet: Regular Diet (high fiber) DARÍO HUI DO Oct 26, 2021 08:50
[2021-10-26 09:10] VITALS: BP 124/84
--- NOTE | 2021-10-26 13:34 | OPERATIVE REPORT ---
DATE OF SERVICE: 10/26/2021 PREOPERATIVE DIAGNOSIS: Screening colonoscopy. POSTOPERATIVE DIAGNOSES: Diverticulosis and colon polyps. PROCEDURES PERFORMED: Colonoscopy with hot biopsy polypectomy x3. SURGEON: Darío Nogueira DO. ANESTHESIA: Per SCALE TESTER. ESTIMATED BLOOD LOSS: None. COMPLICATIONS: None. INDICATIONS FOR PROCEDURE: The patient is a 51-year-old female needing screening colonoscopy. She understands risks and benefits of procedure and wishes to proceed. Consent was signed in the chart. DESCRIPTION OF PROCEDURE: The patient was taken to the endoscopy suite and placed in the left lateral recumbent position. A timeout was performed. Digital rectal exam was performed. No palpable polyps, masses or ulcerations. Scope was inserted in the rectum and advanced all the way to cecum with minimal difficulty. Prep was adequate. Scope was slowly retracted back. No polyps, masses or ulcerations within the cecum. In the ascending colon, small polyp was present, which hot biopsy polypectomy was performed. Scope was then continuously and slowly retracted back. In the transverse colon, another small polyp was present, which hot biopsy polypectomy was performed. Scope was continuously and slowly retracted back. In the descending colon, another polyp was present, which hot biopsy polypectomy was performed. Scope was then continuously and slowly retracted back. In the sigmoid colon, diverticulosis was present. No polyps, masses or ulcerations. Scope was continuously and slowly retracted back in the rectum, where it was also retroflexed noting no other pathology. It was returned to its normal position, slowly withdrawn until completely removed. The patient tolerated the procedure well without any complications. She was taken to recovery room in a stable condition. RECOMMENDATIONS: The patient will be recommended a high-fiber diet due to diverticulosis. We would recommend repeat colonoscopy in five years due to polyps. She will follow up in two weeks to discuss pathology results and answer any questions. Job ID: [id number] DocumentID: [id number] Dictated Date: 10/26/2021 08:52:19 Conference Center Manager Date: 10/26/2021 13:33:54 Dictated By: DARÍO NOGUEIRA DO
--- NOTE | 2021-10-26 14:35 | Anesthesia-General Post-Op ---
MAC Patient Condition Mental Status/LOC: Same as Preop Cardiovascular: Satisfactory Nausea/Vomiting: Absent Respiratory: Satisfactory Pain: Controlled Complications: Absent Post Op Complications Complications None Follow Up Care/Instructions Patient Instructions None needed. Anesthesiology Discharge Order Discharge Order Patient is doing well, no complaints, stable vital signs, no apparent adverse anesthesia problems. No complications reported per nursing. BRYSON ALLEN CRNA Oct 26, 2021 14:35
== END 2021-10-26 09:19 | disposition home or self-care (01) ==
LOC: ENDO 07:05
PROVIDERS: ATTEND Surgery
DX: Z12.11 Encounter for screening for malignant neoplasm of colon (principal); D12.2 Benign neoplasm of ascending colon; D12.3 Benign neoplasm of transverse colon; D12.4 Benign neoplasm of descending colon; K57.30 Diverticulosis of large intestine without perforation or abscess without bleeding; Z79.82 Long term (current) use of aspirin; Z79.02 Long term (current) use of antithrombotics/antiplatelets; Z95.5 Presence of coronary angioplasty implant and graft; Z88.2 Allergy status to sulfonamides; E66.9 Obesity, unspecified; Z68.38 Body mass index [BMI] 38.0-38.9, adult
CPT/HCPCS: 84703

== ENCOUNTER → 2023-01-10 | Outpatient (CLI) | payer BC ==
[~2023-01-10] MED LIST changes: +CATHETER FLUSH 10 ML SYR IVP PRN
[2023-01-10 08:13] VITALS: BP 174/93
--- NOTE | 2023-01-11 14:20 | Cardiology Stress Test Report ---
Stress Test Report Date of Procedure/Referring: Date of Procedure: Jan 10, 2023 PCP Too Ricketts DO Admitting Physician Admitting Physician: Attending Physician: Monica Wilkerson Pa-C Baseline Heart Rate: 70 Baseline Blood Pressure: Blood Pressure Systolic: 174 Blood Pressure Diastolic: 93 Vital Signs Date Time Temp Pulse Resp B/P (MAP) Pulse Ox O2 Delivery O2 Flow Rate FiO2 01/10/23 08:13 70 174/93 (120) 95 Baseline Vital Signs Vital Signs Date Time Temp Pulse Resp B/P (MAP) Pulse Ox O2 Delivery O2 Flow Rate FiO2 01/10/23 08:13 70 174/93 (120) 95 Baseline EKG: Baseline EKG: NSR Summary: After explaining the procedure and details to the patient, she signed the consent and was brought to the stress nuclear laboratory. Patient exercised on standard Maurice protocol, EKG, heart rate and blood pressure were monitored continuously, resting and stress doses of radio tracer were injected, imaging was acquired and reviewed in the short axis, horizontal long axis and vertical long axis views Patient was able to exercise for a total of 4 minutes on Maurice protocol, METs 5.8 Maximum heart rate 147 Maximum blood pressure 240/102 Stress EKG, Minimal nondiagnostic changes Recovery EKG, Return to baseline TID: 1.09 SSS: 12 SDS: 8 EF: 76 Conclusion: Poor exercise tolerance for 4 minutes on standard Maurice protocol, 5.8 METS achieving 88% of maximal expected heart rate Appropriate heart rate response to exercise with severe hypertensive response to exercise return to baseline during recovery Nondiagnostic EKG changes with exercise return to baseline during recovery Large reversible ischemia involving the whole anterior wall and anterior apical segment Normal left ventricular size, ejection fraction 76% Copy Copies To 1: TOO RICKETTS BASHAR J MD Jan 11, 2023 14:20
== END ==
LOC: CARD 06:36
PROVIDERS: ATTEND Physician Assistant
DX: I25.9 Chronic ischemic heart disease, unspecified (principal); I10 Essential (primary) hypertension; I25.10 Atherosclerotic heart disease of native coronary artery without angina pectoris
CPT/HCPCS: 78452; 93017

== ENCOUNTER 2023-01-25 10:43 | Day surgery (SDC) | payer BC ==
[~2023-01-25] VITALS: Ht 162.6 cm; Wt 104.3 kg
[2023-01-25] VITALS (8 sets, daily range): BP systolic 112–169; BP diastolic 68–85
[~2023-01-25 10:43] MED LIST changes: -CATHETER FLUSH 10 ML SYR IVP PRN; +NITRO DRIP 25000 MCG/D5W 250 ML IV ONE
[2023-01-25] MEDS ORDERED: NS IV 1000 ML 1,000 ML IV SCH ×2 (11:00→13:45)
[2023-01-25] MEDS ORDERED: HEParin (CATH LAB) 2,000 ML IV ONE (11:02)
[2023-01-25] MEDS ORDERED: NS IV 1000 ML 1,000 ML ONE (11:02)
[2023-01-25] MEDS ORDERED: LIDOCAINE 1% INJ 20 ML VIAL ONE (11:02)
[2023-01-25 11:20] LABS: HEMATOCRIT 35 % (35-52); HEMOGLOBIN 11.3 g/dL (11.5-16.0); MEAN CORPUSCULAR HEMOGLOBIN 26 pg (25-34); MEAN CORPUSCULAR HGB CONC 32 g/dL (32-36); MEAN CORPUSCULAR VOLUME 81 fL (80-99); MEAN PLATELET VOLUME 11.1 fL (9.0-12.2); PLATELET COUNT 222 10^3/uL (130-400); WHITE BLOOD COUNT 5.6 10^3/uL (4.3-11.0)
[2023-01-25 11:34] LABS: BACTERIA,URINE FEW /HPF; BILIRUBIN,URINE NEGATIVE (NEGATIVE); CLARITY,URINE CLOUDY; COLOR,URINE YELLOW; GLUCOSE, URINE (UA) NEGATIVE (NEGATIVE); KETONES,URINE NEGATIVE (NEGATIVE); LEUKOCYTE ESTERASE ,URINE NEGATIVE (NEGATIVE); NITRITE,URINE NEGATIVE (NEGATIVE); PH,URINE 5.5 (5-9); PROTEIN,URINE NEGATIVE (NEGATIVE); RBC,URINE RARE /HPF
[2023-01-25 11:38] LABS: INR 0.9 (0.8-1.4); PROTHROMBIN TIME PATIENT 12.5 SEC (12.2-14.7)
[2023-01-25 11:40] LABS: BILIRUBIN,TOTAL 0.4 MG/DL (0.1-1.0); CALCIUM 8.9 MG/DL (8.5-10.1); CREATININE SERUM 0.85 MG/DL (0.60-1.30); POTASSIUM 3.9 MMOL/L (3.6-5.0); TOTAL PROTEIN 7.3 GM/DL (6.4-8.2)
--- NOTE | 2023-01-25 11:41 | Diagnostic Imaging Report ---
EXAMINATION: Chest 1 view HISTORY: Preoperative examination. COMPARISON: 01/20/2021 FINDINGS: The lungs are clear without edema or pneumonia. No pleural effusion or pneumothorax. Heart size is normal. IMPRESSION: 1. Clear lungs. Dictated by: Dictated on workstation # [id number]
--- NOTE | 2023-01-25 11:54 | Cardiac Procedure Note-CS/ASA ---
Pre-Procedure Note Pre-Op Procedure Note Date of Available H&P: Jan 12, 2023 Date H&P Reviewed: Jan 25, 2023 Time H&P Reviewed: 11:54 History & Physical: H&P Reviewed, Patient Examed, No changes noted Pre-Operative Diagnosis: CAD Moderate Sedation PreProcedure Time 11:54 ASA Score 3 Airway Lungs Heart ASA score ASA 1: a normal healthy patient ASA 2: a patient with a mild systemic disease (mid diabetes, controlled hypertension, obesity ASA 3: a patient with a severe systemic disease that limits activity (angina, COPD, prior Myocardial infarction) ASA 4: a patient with an incapacitating disease that is a constant threat to life (CHF, renal failure) ASA 5: a moribund patient not expected to survive 24 hrs. (ruptured aneurysm) ASA 6: a declared brain- patient whose organs are being harvested. For emergent operations, add the letter E after the classification Mallampati Classification Grade 3 Sedation Plan Analgesia, Amnesia, Plan communicated to team members, Discussed options with patient/fam, Discussed risks with patient/fam The patient is an appropriate candidate to undergo the planned procedure, sedation, and anesthesia. The patient immediately re-assessed prior to indication. KIARRA LAZAR MD Jan 25, 2023 11:54
[2023-01-25] MEDS ORDERED: HEParin 1000 UNIT/ML (10ML VIAL) FOR BOLUS ONE (12:49)
[2023-01-25] MEDS ORDERED: MIDAZOLAM INJ 5 MG/5 ML VIAL ONE (12:49)
[2023-01-25] MEDS ORDERED: VERAPAMIL 5 MG/2 ML (CALAN) VIAL IV ONE (12:49)
[2023-01-25] MEDS ORDERED: fentaNYL INJECTION 100 MCG/2 ML VIAL ONE (12:49)
--- NOTE | 2023-01-25 13:46 | Discharge Inst-Post CATH ---
Discharge Inst-CATH/EP Problems Reviewed?: Yes Post Cardiac Cath/EP D/C Inst Follow Up/Plan Appointment with Dr. Abraham's office in 2 to 4 weeks <b>CARDIAC CATH/EP PROCEDURE DISCHARGE INSTRUCTIONS</b> ACTIVITY * Go Home directly and rest. * Limit activity of the leg (or wrist if it was used) for 7 days including aer obics, swimming, jogging, bicycling, etc. * Restrict stair-climbing for 7 days if possible, if not, climb up with your non-cath leg, then bring together on the same step. * Avoid lifting, pushing, pulling or excessive movement of the affected extremi ty for 7 days. * Customary sexual activity may be resumed after 2 days-use caution not to use a position that strains or causes pain to the affected extremity. * No driving for 24 hours. * NO SMOKING. * Avoid straining for bowel movements for 7 days. * Gentle walking on level ground is allowed. * Returning to work will depend on the type of procedure and the results. Your doctor will discuss this with you. CALL YOUR DOCTOR FOR ANY OF THE FOLLOWING: *If bleeding from the puncture site occurs- Apply gentle pressure to site with clean cloth and call your doctor or EMS. * If a knot or lump forms under the skin, increases in size, or causes pain. * If bruising appears to be worsening or moving further down your leg instead of disappearing. * Temperature above 101 F. CARE OF YOUR GROIN INCISION; * Bruising or purple discoloration of the skin near the puncture site is common. * You may shower only, no bathtub bathing for 5 days. Be careful to avoid slipping as your leg may feel stiff. * If a closure device was used on your femoral artery, please see the attached guide regarding care of the device and your leg. * Leave dressing on FOR 24 hours. CARE OF YOUR WRIST INCISION; * Bruising or purple discoloration of the skin near the puncture site is common. * You may shower. * DO NOT submerge wrist. * Leave dressing on FOR 24 hours. KIARRA ABRAHAM MD Jan 25, 2023 13:46
--- NOTE | 2023-01-25 13:50 | Cardiac Cath Report ---
Cardiac Cath Report Physician (s)/Snack Bar Attendant (s) Physician KIARRA LAZAR MD Pre-Procedure Diagnosis Pre-Procedure Diagnosis: CAD Post-Procedure Note Procedure Start Date: Jan 25, 2023 Name of Procedure: Left heart catheterization IFR to the LAD IFR to the circumflex artery Findings/Procedure Note PROCEDURE NOTE: 52-year-old lady with history of coronary artery disease multiple intervention in the past, had an abnormal stress test, cardiac catheterization was advised. After explaining the procedure to the patient, all pros and cons were explained, all questions were answered. The patient signed the consent and then she was placed in the cardiac catheterization laboratory. Groin was prepped in SL fas hion local anesthesia was used. Sheath placed in the right radial artery, [place] catheter was advanced to the left ventricular cavity, pressure was measured, pullback LV to aorta was done, engage the left coronary system, exchanged the catheter to Robert right catheter and engaged the right coronary artery angiogram was done. Patient has borderline lesion in the proximal LAD and mid circumflex artery Robert left guide was used, IFR wire was advanced to the circumflex artery parked distally and baseline IFR was 1.0. The wire was retracted and advanced into the LAD and IFR was 0.93 through the LAD. Wire was removed guide was removed no complication noted At the end of the procedure the sheath was removed. Vascular band was used FINDINGS: Hemodynamics LV 138/12, end-diastolic pressure of 12 Aorta 135/81 mean of 89 ANATOMY: Left Main is free of obstructive disease Left Anterior Descending has patent stent in the mid LAD, proximally there is 50% stenosis, IFR was 0.93. Diagonal artery has 90% stenosis, small artery not amendable to intervention distal LAD has severe disease small artery Left Circumflex is moderate in size with 50% stenosis at the midportion. iFR through the circumflex artery was 1.0 Right Coronary Artery is dominant artery patent with no obstructive disease LV Gram was not done, pressure was measured CONCLUSION: Severe stenosis 90% ostial diagonal artery moderate in size, not amendable to intervention. 50% stenosis in the proximal LAD with IFR 0.93, patent stent in the mid LAD with no obstructive disease, severe disease at the distal LAD small artery not amendable to intervention 50% mid circumflex artery stenosis nonobstructive disease Dominant right coronary artery with no obstructive disease Normal left ventricular end-diastolic pressure DISCUSSION AND RECOMMENDATION: Abnormal stress test is due to small vessel disease including the ostium of the diagonal artery and distal LAD, medical therapy is recommended no intervention is warranted LDL 120, patient is maintained on Lipitor 80 mg daily, I will switch her to Leqvio and evaluate tolerance and response Anesthesia Type: Conscious Sedation Estimated blood loss (mL): 25 ml Contrast Amount: 80 ml Total Radiation Dose: 741 mGy Post-Procedure Diagnosis Post-operative diagnosis: Chest pain Coronary artery disease Hypertension Hyperlipidemia KIARRA LAZAR MD Jan 25, 2023 13:50
== END 2023-01-25 16:15 | disposition home or self-care (01) ==
LOC: CATH 10:43 → SDC 14:12 → CATH 16:15
PROVIDERS: ATTEND Internal Medicine Cardiovascular Disease
DX: I25.10 Atherosclerotic heart disease of native coronary artery without angina pectoris (principal); I11.9 Hypertensive heart disease without heart failure; I65.23 Occlusion and stenosis of bilateral carotid arteries; E78.2 Mixed hyperlipidemia; E66.9 Obesity, unspecified; Z79.899 Other long term (current) drug therapy; Z68.39 Body mass index [BMI] 39.0-39.9, adult
CPT/HCPCS: 71045; 80053; 80061; 81000; 85027; 85610; 85730; 87081; 93005; 93458; 93571; 93572; C1769 ×2; C1887; C1894; 36415